=== PATIENT | male | born 1940 | race Caucasian/White ===

== ENCOUNTER 2020-11-13 15:24 | Inpatient (IN) | payer MEDICARE, BC ==
[~2020-11-13] VITALS: Ht 185.4 cm; Wt 61.3 kg
[2020-11-13] MEDS ORDERED: normal saline 1000ML IV soln IVB ONE (15:35)
--- NOTE | 2020-11-13 15:41 | NUR ---
PT TO CT VIA DICK WITH ASSISTANT DIRECTOR OF NURSING
[2020-11-13 16:26] LABS: BASOPHILS % (AUTO) 0.5 % (0-1); EOSINOPHILS # (AUTO) 0.4 X10'3 (0-0.9); EOSINOPHILS % (AUTO) 5.5 % (0-6); HEMATOCRIT 31.8 % (42.0-52.0); HEMOGLOBIN 10.8 g/dl (14.0-17.9); LYMPHOCYTES # (AUTO) 0.6 X10'3 (1.1-4.8); LYMPHOCYTES % (AUTO) 7.8 % (21-51); MEAN CORPUSCULAR HGB CONC 33.9 g/dL (33.0-36.5); MEAN CORPUSCULAR VOLUME 91.4 FL (78-98); MEAN PLATELET VOLUME 7.9 FL (7.4-10.4); MONOCYTES # (AUTO) 1.2 X10'3 (0-0.9); MONOCYTES % (AUTO) 15.3 % (2-12); NEUTROPHILS # (AUTO) 5.6 X10'3 (1.8-7.7); NEUTROPHILS % (AUTO) 70.9 % (42-75); PLATELET COUNT 344 X10'3 (140-440); RED BLOOD COUNT 3.48 X10'6 (4.70-6.10); RED CELL DISTRIBUTION WIDTH 13.6 % (11.5-14.5); WHITE BLOOD COUNT 7.9 X10'3 (4.5-11.0)
[2020-11-13 16:30] LABS: PARTIAL THROMBOPLASTIN TIME 25 SECONDS (22-32)
[2020-11-13 16:44] LABS: ALANINE AMINOTRANSFERASE 19 U/L (12-78); ALBUMIN 2.8 G/DL (3.4-5.0); ALBUMIN/GLOBULIN RATIO 0.6 (1.1-1.5); ALKALINE PHOSPHATASE 94 IU/L (46-116); ANION GAP 12 (8-16); ASPARTATE AMINO TRANSFERASE 23 U/L (10-37); BILIRUBIN,TOTAL 0.6 MG/DL (0.1-1.0); BLOOD UREA NITROGEN 37 MG/DL (7-18); BUN/CREATININE RATIO 22.4 (5.4-32.0); CALCIUM 11.2 MG/DL (8.5-10.1); CHLORIDE 99 MMOL/L (99-107); CREATININE 1.65 MG/DL (0.60-1.10); GLUCOSE 123 MG/DL (70-104); MAGNESIUM 1.5 MG/DL (1.5-2.4); SODIUM 135 MMOL/L (135-145); TOTAL CARBON DIOXIDE 24.5 MMOL/L (24-32); TOTAL PROTEIN 7.5 G/DL (6.4-8.2); eGFR 40 ML/MIN
[2020-11-13 16:49] LABS: POTASSIUM 2.9 MMOL/L (3.5-5.1)
[2020-11-13 16:54] LABS: CLARITY,URINE CLEAR (Clear); COLOR,URINE YELLOW (Yellow); GLUCOSE, URINE NEGATIVE (Neg); KETONES,URINE NEGATIVE (Neg); LEUKOCYTE ESTERASE ,URINE NEGATIVE (Neg); NITRITES, URINE NEGATIVE (Neg); OCCULT BLOOD,URINE MODERATE (Neg); PH,URINE 6.5 (4.8-8.0); PROTEIN,URINE NEGATIVE (Neg); UROBILINOGEN,URINE 0.2 E.U/dL (0.2-1.0)
[2020-11-13 16:59] LABS: UA COLLECTION TYPE NON-SPECIFIED
--- NOTE | 2020-11-13 16:59 | NUR ---
When asked if pt. has allergies to medications the pt. reports no allergies, but states "there is this stuff they add during surgery that makes me get up and tear up the hosptial". Pt. does not know what this medication is though.
[2020-11-13 17:01] LABS: MUCUS STRANDS FEW /LPF (Neg); SQUAMOUS EPITHELIAL CELL,UR FEW /LPF (FEW)
[2020-11-13 17:03] LABS: RBC,URINE 20-50 /HPF (0-2)
[2020-11-13 17:05] LABS: BACTERIA,URINE FEW /HPF (Neg)
[2020-11-13] MEDS ORDERED: CefTRIAXone/D5W-Rocephin 1gm 50 ML IV ONE (17:40)
[2020-11-13] MEDS ORDERED: azithromycin/NS 500mg/250ml 250 ML IV ONE (17:40)
[2020-11-13] MEDS ORDERED: normal saline 1000ml 1,000 ML IV ONE ×2 (17:45→18:05)
--- NOTE | 2020-11-13 18:09 | NUR ---
pt to ct via jennifer with manufacturing test engineer.
[2020-11-13] MEDS ORDERED: FLUD0.1T PO (18:21)
[2020-11-13] MEDS ORDERED: ASPI-10 PO (18:22)
[2020-11-13] MEDS ORDERED: [UNRECOGNIZED DRUG - CODE] PO (18:23)
--- NOTE | 2020-11-13 18:25 | NUR ---
PT'S REPORTS DO NOT GIVE ATIVAN. PT HAS VIOLENT REACTION.
[2020-11-13] MEDS: potassium Cl 10 mEq/100mL bag IV SCH ×2 (18:34→19:55)
[2020-11-13] MEDS ORDERED: magnesium hydroxide 30ml (MOM) UD suspension PO PRN (19:20)
[2020-11-13] MEDS: normal saline 1000ml 1,000 ML IV SCH (19:20)
[2020-11-13] MEDS ORDERED: acetaminophen 650mg rectal suppository RC PRN (19:20)
[2020-11-13] MEDS ORDERED: magnesium Cl slow-release 64mg tablet PO PRN (19:20)
[2020-11-13] MEDS ORDERED: ondansetron/PF 4mg/2ml inj IV PRN (19:20)
[2020-11-13] MEDS ORDERED: magnesium 4gm in 100ml NS 100 ML IV PRN (19:20)
[2020-11-13] MEDS ORDERED: potassium Cl 40MEQ/1/2NS 520ml 520 ML IV PRN ×2 (19:20)
[2020-11-13] MEDS ORDERED: magnesium 2GM in 50ml NS 50 ML IV PRN (19:20)
[2020-11-13] MEDS ORDERED: acetaminophen 325mg tablet PO PRN ×2 (19:20)
[2020-11-13] MEDS ORDERED: mag hydrox/Alum hydrox/simeth 30ml oral suspension PO PRN (19:20)
[2020-11-13] MEDS ORDERED: morphine 4 MG/ML inj SYRINge IV ONE (19:30)
[2020-11-13] MEDS ORDERED: HYDROcodone/acetaminophen 5mg/325mg tablet PO ONE (19:30)
[2020-11-13] MEDS ORDERED: potassium Cl 10 mEq/100mL bag IV SCH (19:50)
[2020-11-13] MEDS: heparin, porcine 5000 units/ml vial SQ SCH (20:00)
[2020-11-13] MEDS: K and/or MAG REPLACEMENT MC SCH (20:00)
[2020-11-13] MEDS: Melatonin 3mg tablet PO SCH (21:00)
[2020-11-13 23:00] VITALS: BP 148/87
[2020-11-13 23:16] LABS: PLATELET ESTIMATE NORMAL; TOTAL CELLS COUNTED 100
[2020-11-13 23:22] LABS: LARGE PLATELETS FEW
[2020-11-13] MEDS: HYDROcodone/acetaminophen 10/325mg tab PO PRN (23:33)
[2020-11-14 03:00] VITALS: BP 141/84
[2020-11-14 04:39] LABS: BASOPHILS # (AUTO) 0.1 X10'3 (0-0.2); BASOPHILS % (AUTO) 0.8 % (0-1); EOSINOPHILS # (AUTO) 0.1 X10'3 (0-0.9); EOSINOPHILS % (AUTO) 1.3 % (0-6); HEMOGLOBIN 9.9 g/dl (14.0-17.9); LYMPHOCYTES # (AUTO) 0.5 X10'3 (1.1-4.8); LYMPHOCYTES % (AUTO) 7.6 % (21-51); MEAN CORPUSCULAR HEMOGLOBIN 30.3 PG (27.0-31.0); MONOCYTES # (AUTO) 0.9 X10'3 (0-0.9); MONOCYTES % (AUTO) 12.5 % (2-12); NEUTROPHILS # (AUTO) 5.4 X10'3 (1.8-7.7); NEUTROPHILS % (AUTO) 77.8 % (42-75); PLATELET COUNT 312 X10'3 (140-440); RED BLOOD COUNT 3.26 X10'6 (4.70-6.10); RED CELL DISTRIBUTION WIDTH 13.7 % (11.5-14.5)
[2020-11-14 04:45] LABS: ALBUMIN 2.6 G/DL (3.4-5.0); ANION GAP 9 (8-16); BLOOD UREA NITROGEN 31 MG/DL (7-18); BUN/CREATININE RATIO 22.8 (5.4-32.0); CALCIUM 10.9 MG/DL (8.5-10.1); CHLORIDE 102 MMOL/L (99-107); CREATININE 1.36 MG/DL (0.60-1.10); GLUCOSE 122 MG/DL (70-104); MAGNESIUM 1.5 MG/DL (1.5-2.4); SODIUM 135 MMOL/L (135-145); TOTAL CARBON DIOXIDE 24.4 MMOL/L (24-32); eGFR 50 ML/MIN
[2020-11-14 04:49] LABS: POTASSIUM 2.9 MMOL/L (3.5-5.1)
[2020-11-14] MEDS: normal saline 1000ml 1,000 ML IV SCH (05:01)
[2020-11-14] MEDS: potassium Cl 20 mEq SR tablet PO PRN ×3 (05:01→20:03)
[2020-11-14 06:00] VITALS: BP 149/91
--- NOTE | 2020-11-14 06:17 | NUR ---
Patient in room PCU 3028. I have received report from JEAN-CLAUDE HAM and had the opportunity to ask questions and assume patient care.
--- NOTE | 2020-11-14 07:00 | NUR ---
received pt with sao2 mid 70's on R/A placed on 4l/n/c and cont pulse ox,with sao2 mid 80s ,Dr. Rodas notified,o2 up to 6l n/c wiith sao2 87-90% orders taken for ABG,results paged to
[2020-11-14] MEDS: K and/or MAG REPLACEMENT MC SCH ×2 (08:00→20:05)
[2020-11-14 08:36] LABS: ABG BASE EXCESS -2.4 mmol/L (-2.0-2.0); ABG HCO3 20.2 mmol/L (22.0-26.0); ABG OXYGEN SATURATION 77.8 % (94-97); ABG PO2 (T) 42.5 mmHg (75.0-100.0); ALLEN'S TEST POSITIVE; FCOHb 0.6 % (0.0-3.9); FMetHb 0.3 % (0.0-1.5); FO2Hb 77.1 % (94-97); TOTAL HEMOGLOBIN 10.4 G/dl (14.0-18.0)
--- NOTE | 2020-11-14 09:00 | NUR ---
pt confused ,pulled out iv,removing o2 , attempting oob,dr. arechiga at bedside,pt placed on 15/l high flow o2 with sao2=90-92% orders taken for sitter
[2020-11-14 11:00] VITALS: BP 186/103
[2020-11-14] MEDS: heparin, porcine 5000 units/ml vial SQ SCH ×2 (12:21→20:03)
[2020-11-14] MEDS ORDERED: furosemide 40mg/4ml inj IV ONE (12:25)
[2020-11-14] MEDS: methylPREDNISolone sod succ 125mg/2ml vial IV SCH ×2 (14:09→20:03)
[2020-11-14] MEDS: CefTRIAXone/D5W-Rocephin 1gm 50 ML IV SCH (14:28)
[2020-11-14 15:00] VITALS: BP 182/98
[2020-11-14] MEDS: HYDROcodone/acetaminophen 10/325mg tab PO PRN ×2 (16:50→21:52)
[2020-11-14 18:00] VITALS: BP 169/97
[2020-11-14] MEDS ORDERED: LIDOcaine 2% 10ml TOPICAL JELLY (Urojet) TP ONE (18:05)
--- NOTE | 2020-11-14 18:18 | NUR ---
Problems reprioritized. Patient report given, questions answered & plan of care reviewed with rina.
--- NOTE | 2020-11-14 19:15 | NUR ---
Patient in room PCU 3023. I have received report from Grace BERMEO and had the opportunity to ask questions and assume patient care.
[2020-11-14] MEDS: albuterol 2.5 MG/3 ML nebule NEB SCH (21:34)
[2020-11-14] MEDS: Melatonin 3mg tablet PO SCH (21:52)
[2020-11-14 22:00] VITALS: BP 167/94
--- NOTE | 2020-11-14 22:42 | NUR ---
Unable to dart patient, very confused.
--- NOTE | 2020-11-14 23:08 | NUR ---
Patient refuses orthostatic vitals, still confused.
[2020-11-15] VITALS (7 sets, daily range): BP systolic 94–167; BP diastolic 57–100
[2020-11-15] MEDS: methylPREDNISolone sod succ 125mg/2ml vial IV SCH ×4 (02:52→20:39)
[2020-11-15] MEDS: albuterol 2.5 MG/3 ML nebule NEB SCH ×7 (03:52→23:23)
--- NOTE | 2020-11-15 06:49 | NUR ---
Problems reprioritized. Patient report given, questions answered & plan of care reviewed with Niki BERMEO.
[2020-11-15] MEDS: heparin, porcine 5000 units/ml vial SQ SCH ×2 (08:25→20:38)
[2020-11-15] MEDS: K and/or MAG REPLACEMENT MC SCH ×2 (08:26→20:00)
[2020-11-15] MEDS: furosemide 40mg/4ml inj IV SCH (08:26)
[2020-11-15] MEDS: potassium Cl 20 mEq SR tablet PO PRN ×3 (08:32→18:11)
[2020-11-15] MEDS: CefTRIAXone/D5W-Rocephin 1gm 50 ML IV SCH (08:54)
--- NOTE | 2020-11-15 14:06 | NUR ---
PAGER ID: [phone] MESSAGE: DAVID TAFOYA [id number] JUST AN FYI ON ASSESSMENT THERE IS A LARGE BULDGE BUMP TO THE RIGHT OF RAMIREZ APPLE AND TRACHEA. PLEASE RENEW RESTRAINTS. THANKS TREASURE 7870
[2020-11-15] MEDS ORDERED: iohexol 350MG/ML 100ml bottle IV ONE (15:28)
--- NOTE | 2020-11-15 17:36 | NUR ---
PAGER ID: [phone] MESSAGE: DAVID HECTORWAYLON [id number] PLEASE NOTE SLIGHTLY ELEVATED BPS TODAY. CURRENT 157/93, REASSESSED. TREASURE 0510
--- NOTE | 2020-11-15 17:46 | NUR ---
PAGER ID: [phone] MESSAGE: DAVID TAFOYA IS BECOMING MORE AGITATED AND CONFUSED. ROOM 3023b. PLEASE RENEW RESTRAINT ORDER. PULLING 02 OFF AND DESATING AND PULLING AT F/C. TREASURE 4003
[2020-11-15] MEDS ORDERED: haloperidol lactate 5mg/ml inj IM ONE (17:50)
--- NOTE | 2020-11-15 17:52 | NUR ---
md CALLED. haldol ORDER GIVEN AND RESTRAINT ORDER RENEWED PT. IS BECOMING MORE AGITATED AND IS PULLING AT F/C AND PULLING 02 OFF.
--- NOTE | 2020-11-15 17:53 | NUR ---
AWARE OF BPS TODAY BUT NO NEW ORDERS AT THIS TIME. WILL CONT. TO MONITOR ON MY SHIFT.
--- NOTE | 2020-11-15 18:54 | NUR ---
Gave report to Sunitha BERMEO.
--- NOTE | 2020-11-15 18:54 | NUR ---
Patient in room PCU 3023. I have received report from Niki BERMEO and had the opportunity to ask questions and assume patient care.
--- NOTE | 2020-11-15 20:00 | NUR ---
patient refuses orthostatic vitals, patient is slightly confused as well
[2020-11-15] MEDS: lactobacillus rhamnosus 10,000 MMU CELLS/CAPSULE PO SCH (20:37)
[2020-11-15] MEDS: Melatonin 3mg tablet PO SCH (20:38)
--- NOTE | 2020-11-16 01:20 | NUR ---
patient 02 saturations were in the low 80s with 15 L on high flow nasal cannula. RN put on a nonrebreather at 15 L. patient o2 is sating in the 94-96s. Rn will continue to monitor
[2020-11-16] MEDS: methylPREDNISolone sod succ 125mg/2ml vial IV SCH ×4 (01:57→20:55)
[2020-11-16 02:00] VITALS: BP 159/94
[2020-11-16] MEDS: albuterol 2.5 MG/3 ML nebule NEB SCH ×5 (03:24→21:20)
--- NOTE | 2020-11-16 03:24 | NUR ---
RT did a breathing treatment with the patient and the patient is now on 15L high flow nasal cannula and 15L on the nonrebreather mask sating at 95%. RN will continue to monitor
--- NOTE | 2020-11-16 04:13 | NUR ---
patient is more noncompliant. RN will continue to monitor and reorient patient
[2020-11-16 06:00] VITALS: BP 172/97
--- NOTE | 2020-11-16 06:09 | NUR ---
Problems reprioritized. Patient report given, questions answered & plan of care reviewed with Frieda Nguyen.
[2020-11-16] MEDS: K and/or MAG REPLACEMENT MC SCH ×2 (08:00→20:00)
[2020-11-16] MEDS: lactobacillus rhamnosus 10,000 MMU CELLS/CAPSULE PO SCH ×2 (08:39→20:55)
[2020-11-16] MEDS: furosemide 40mg/4ml inj IV SCH (08:39)
[2020-11-16] MEDS: CefTRIAXone/D5W-Rocephin 1gm 50 ML IV SCH (08:39)
[2020-11-16] MEDS: heparin, porcine 5000 units/ml vial SQ SCH ×2 (08:40→20:56)
[2020-11-16 11:00] VITALS: BP 171/91
[2020-11-16 11:37] LABS: BASOPHILS # (AUTO) 0.1 X10'3 (0-0.2); BASOPHILS % (AUTO) 0.5 % (0-1); EOSINOPHILS % (AUTO) 0 % (0-6); HEMATOCRIT 31.2 % (42.0-52.0); HEMOGLOBIN 10.4 g/dl (14.0-17.9); LYMPHOCYTES # (AUTO) 0.5 X10'3 (1.1-4.8); LYMPHOCYTES % (AUTO) 3.2 % (21-51); MEAN CORPUSCULAR HEMOGLOBIN 30.4 PG (27.0-31.0); MEAN CORPUSCULAR HGB CONC 33.3 g/dL (33.0-36.5); MEAN CORPUSCULAR VOLUME 91.3 FL (78-98); MEAN PLATELET VOLUME 8.4 FL (7.4-10.4); MONOCYTES # (AUTO) 0.9 X10'3 (0-0.9); MONOCYTES % (AUTO) 6.3 % (2-12); NEUTROPHILS # (AUTO) 13.5 X10'3 (1.8-7.7); PLATELET COUNT 396 X10'3 (140-440); RED BLOOD COUNT 3.42 X10'6 (4.70-6.10)
[2020-11-16 11:53] LABS: ALANINE AMINOTRANSFERASE 27 U/L (12-78); ALBUMIN 2.8 G/DL (3.4-5.0); ALBUMIN/GLOBULIN RATIO 0.6 (1.1-1.5); ALKALINE PHOSPHATASE 87 IU/L (46-116); ANION GAP 12 (8-16); ASPARTATE AMINO TRANSFERASE 35 U/L (10-37); BILIRUBIN,TOTAL 0.5 MG/DL (0.1-1.0); BLOOD UREA NITROGEN 46 MG/DL (7-18); BUN/CREATININE RATIO 29.1 (5.4-32.0); CALCIUM 10.2 MG/DL (8.5-10.1); CHLORIDE 105 MMOL/L (99-107); CREATININE 1.58 MG/DL (0.60-1.10); GLUCOSE 133 MG/DL (70-104); MAGNESIUM 1.6 MG/DL (1.5-2.4); POTASSIUM 3.6 MMOL/L (3.5-5.1); SODIUM 141 MMOL/L (135-145); TOTAL CARBON DIOXIDE 23.9 MMOL/L (24-32); TOTAL PROTEIN 7.4 G/DL (6.4-8.2); eGFR 42 ML/MIN
--- NOTE | 2020-11-16 12:18 | NUR ---
PATIENT'S SPO2 99% ON 15L HIGH FLOW SALTER AND 12L NON REBREATHER. NON REBREATHER WAS TAKEN OFF AND PATIENT IS CURRENTLY ON 15L HIGH FLOW JUANITO SPO2 93%. NO SOB OR DISTRESS NOTED. RT WILL RETURN FOR 1500 SVN TX. Addendum: 11/16/20 at 1220 by Teresa Rodgers RT Amended: Links added.
[2020-11-16] MEDS: aspirin 81mg tablet.DR PO SCH (14:38)
[2020-11-16 15:00] VITALS: BP 135/86
[2020-11-16] MEDS ORDERED: haloperidol lactate 5mg/ml inj IM ONE (15:35)
--- NOTE | 2020-11-16 18:53 | NUR ---
Problems reprioritized. Patient report given, questions answered & plan of care reviewed with JEAN-CLAUDE HAM.
[2020-11-16 19:00] VITALS: BP 146/91
[2020-11-16] MEDS: Melatonin 3mg tablet PO SCH ×2 (20:56)
[2020-11-16] MEDS: azithromycin/NS 500mg/250ml 250 ML IV SCH (21:55)
[2020-11-16] MEDS ORDERED: ipratropium/albuterol 3ml nebule NEB PRN (21:55)
[2020-11-16] MEDS ORDERED: vancomycin/NS 1 GM ADD-VANTAGE 250 ML IV ONE (22:05)
[2020-11-16 23:00] VITALS: BP 136/71
[2020-11-16] MEDS: ipratropium/albuterol 3ml nebule NEB SCH (23:24)
[2020-11-17] MEDS: Melatonin 3mg tablet PO SCH ×2 (01:53→21:02)
[2020-11-17] MEDS: methylPREDNISolone sod succ 125mg/2ml vial IV SCH ×4 (02:21→20:00)
[2020-11-17 03:00] VITALS: BP 143/93
[2020-11-17] MEDS: ipratropium/albuterol 3ml nebule NEB SCH ×5 (03:05→20:22)
--- NOTE | 2020-11-17 06:28 | NUR ---
Patient in room PCU 3023. I have received report from JEAN-CLAUDE Cox and had the opportunity to ask questions and assume patient care.
[2020-11-17 07:00] VITALS: BP 171/101
[2020-11-17 07:14] LABS: ALANINE AMINOTRANSFERASE 41 U/L (12-78); ALBUMIN 2.9 G/DL (3.4-5.0); ALBUMIN/GLOBULIN RATIO 0.6 (1.1-1.5); ALKALINE PHOSPHATASE 83 IU/L (46-116); ANION GAP 11 (8-16); ASPARTATE AMINO TRANSFERASE 56 U/L (10-37); BILIRUBIN,TOTAL 0.7 MG/DL (0.1-1.0); BLOOD UREA NITROGEN 53 MG/DL (7-18); BUN/CREATININE RATIO 31.2 (5.4-32.0); CALCIUM 9.9 MG/DL (8.5-10.1); CHLORIDE 108 MMOL/L (99-107); GLUCOSE 135 MG/DL (70-104); MAGNESIUM 1.9 MG/DL (1.5-2.4); PHOSPHORUS 4.7 MG/DL (2.3-4.5); POTASSIUM 3.7 MMOL/L (3.5-5.1); SODIUM 146 MMOL/L (135-145); TOTAL CARBON DIOXIDE 26.9 MMOL/L (24-32); TOTAL PROTEIN 7.4 G/DL (6.4-8.2); eGFR 39 ML/MIN
[2020-11-17 07:17] LABS: BASOPHILS % (AUTO) 0.1 % (0-1); EOSINOPHILS % (AUTO) 0 % (0-6); HEMATOCRIT 30.5 % (42.0-52.0); HEMOGLOBIN 10.2 g/dl (14.0-17.9); LYMPHOCYTES # (AUTO) 0.5 X10'3 (1.1-4.8); LYMPHOCYTES % (AUTO) 5.2 % (21-51); MEAN CORPUSCULAR HEMOGLOBIN 30.8 PG (27.0-31.0); MEAN CORPUSCULAR HGB CONC 33.7 g/dL (33.0-36.5); MEAN CORPUSCULAR VOLUME 91.5 FL (78-98); MEAN PLATELET VOLUME 8.3 FL (7.4-10.4); MONOCYTES # (AUTO) 0.6 X10'3 (0-0.9); MONOCYTES % (AUTO) 6.5 % (2-12); NEUTROPHILS # (AUTO) 8.5 X10'3 (1.8-7.7); NEUTROPHILS % (AUTO) 88.2 % (42-75); PLATELET COUNT 367 X10'3 (140-440); RED BLOOD COUNT 3.33 X10'6 (4.70-6.10); RED CELL DISTRIBUTION WIDTH 14.2 % (11.5-14.5); WHITE BLOOD COUNT 9.7 X10'3 (4.5-11.0)
[2020-11-17] MEDS: lactobacillus rhamnosus 10,000 MMU CELLS/CAPSULE PO SCH ×2 (07:46→20:00)
[2020-11-17] MEDS: ascorbic acid 500mg tablet PO SCH (07:46)
[2020-11-17] MEDS: fludrocortisone acetate 0.1mg tablet PO SCH (07:47)
[2020-11-17] MEDS: aspirin 81mg tablet.DR PO SCH (07:47)
[2020-11-17] MEDS: piperacillin/tazo 3.375gm/50ml 50 ML IV SCH ×3 (07:48→16:22)
[2020-11-17] MEDS: furosemide 40mg/4ml inj IV SCH (07:48)
[2020-11-17] MEDS: heparin, porcine 5000 units/ml vial SQ SCH ×2 (07:48→20:00)
[2020-11-17] MEDS: K and/or MAG REPLACEMENT MC SCH ×2 (08:00→20:00)
[2020-11-17 11:00] VITALS: BP 151/92
[2020-11-17 15:00] VITALS: BP 140/98
[2020-11-17] MEDS: normal saline 1000ml 1,000 ML IV SCH ×2 (15:09→22:40)
[2020-11-17] MEDS: lactose-reduced food (Ensure Enlive) - 237ml bottle PO SCH (18:00)
--- NOTE | 2020-11-17 18:44 | NUR ---
Problems reprioritized. Patient report given, questions answered & plan of care reviewed with JEAN-CLAUDE Cox.
[2020-11-17 19:00] VITALS: BP 168/110
[2020-11-17] MEDS: azithromycin/NS 500mg/250ml 250 ML IV SCH (21:01)
[2020-11-17] MEDS ORDERED: VANCOMYCIN LEVEL IV ONE (21:30)
[2020-11-17] MEDS: VANCOMYCIN 750MG IV in NS 250 ML IV SCH (22:39)
[2020-11-17 23:00] VITALS: BP 163/105
[2020-11-18] MEDS: ipratropium/albuterol 3ml nebule NEB SCH ×7 (00:18→23:37)
[2020-11-18] MEDS: piperacillin/tazo 3.375gm/50ml 50 ML IV SCH ×3 (00:20→15:17)
[2020-11-18] MEDS: methylPREDNISolone sod succ 125mg/2ml vial IV SCH ×5 (02:14→20:58)
[2020-11-18 03:00] VITALS: BP 166/105
--- NOTE | 2020-11-18 06:14 | NUR ---
Patient in room PCU 3023. I have received report from JEAN-CLAUDE Cox and had the opportunity to ask questions and assume patient care.
[2020-11-18 06:16] LABS: BASOPHILS % (AUTO) 0 % (0-1); EOSINOPHILS % (AUTO) 0 % (0-6); HEMATOCRIT 29.4 % (42.0-52.0); HEMOGLOBIN 9.9 g/dl (14.0-17.9); LYMPHOCYTES # (AUTO) 0.5 X10'3 (1.1-4.8); LYMPHOCYTES % (AUTO) 6.7 % (21-51); MEAN CORPUSCULAR HGB CONC 33.7 g/dL (33.0-36.5); MEAN CORPUSCULAR VOLUME 91.8 FL (78-98); MEAN PLATELET VOLUME 7.9 FL (7.4-10.4); MONOCYTES # (AUTO) 0.6 X10'3 (0-0.9); MONOCYTES % (AUTO) 7.8 % (2-12); NEUTROPHILS # (AUTO) 6.1 X10'3 (1.8-7.7); NEUTROPHILS % (AUTO) 85.5 % (42-75); PLATELET COUNT 318 X10'3 (140-440); RED CELL DISTRIBUTION WIDTH 14.2 % (11.5-14.5); WHITE BLOOD COUNT 7.2 X10'3 (4.5-11.0)
[2020-11-18 06:33] LABS: ALANINE AMINOTRANSFERASE 64 U/L (12-78); ALBUMIN 2.6 G/DL (3.4-5.0); ALBUMIN/GLOBULIN RATIO 0.6 (1.1-1.5); ALKALINE PHOSPHATASE 73 IU/L (46-116); ANION GAP 10 (8-16); ASPARTATE AMINO TRANSFERASE 62 U/L (10-37); BLOOD UREA NITROGEN 54 MG/DL (7-18); BUN/CREATININE RATIO 32.5 (5.4-32.0); CALCIUM 8.8 MG/DL (8.5-10.1); CHLORIDE 113 MMOL/L (99-107); CREATININE 1.66 MG/DL (0.60-1.10); GLUCOSE 141 MG/DL (70-104); PHOSPHORUS 3.8 MG/DL (2.3-4.5); SODIUM 150 MMOL/L (135-145); TOTAL CARBON DIOXIDE 26.7 MMOL/L (24-32); TOTAL PROTEIN 6.7 G/DL (6.4-8.2); eGFR 40 ML/MIN
[2020-11-18 07:00] VITALS: BP 160/102
[2020-11-18 07:05] LABS: POTASSIUM 2.6 MMOL/L (3.5-5.1)
--- NOTE | 2020-11-18 07:12 | NUR ---
PAGER ID: [phone] MESSAGE: CARMEN WEINBERG 3023B - CRITICAL K+ 2.6, NO REPLACEMENT ORDERS, MAY I REPLACE? WILTON Porfirio [phone]
[2020-11-18] MEDS: heparin, porcine 5000 units/ml vial SQ SCH ×2 (07:58→20:38)
[2020-11-18] MEDS: ascorbic acid 500mg tablet PO SCH (07:58)
[2020-11-18] MEDS: aspirin 81mg tablet.DR PO SCH (07:58)
[2020-11-18] MEDS: K and/or MAG REPLACEMENT MC SCH ×3 (07:58→20:39)
[2020-11-18] MEDS: fludrocortisone acetate 0.1mg tablet PO SCH (07:58)
[2020-11-18] MEDS: lactobacillus rhamnosus 10,000 MMU CELLS/CAPSULE PO SCH ×2 (07:58→20:38)
[2020-11-18] MEDS: lactose-reduced food (Ensure Enlive) - 237ml bottle PO SCH ×3 (07:58→18:00)
[2020-11-18] MEDS ORDERED: potassium Cl 40MEQ/1/2NS 520ml 520 ML IV PRN (09:50)
[2020-11-18] MEDS ORDERED: magnesium Cl slow-release 64mg tablet PO PRN (09:50)
[2020-11-18] MEDS ORDERED: magnesium 4gm in 100ml NS 100 ML IV PRN (09:50)
[2020-11-18] MEDS: potassium Cl 20 mEq SR tablet PO PRN ×3 (10:17→20:37)
[2020-11-18] MEDS: dextrose 5%-1/4 normal saline 1,000 ML IV SCH ×2 (10:33→20:58)
[2020-11-18 11:00] VITALS: BP 167/97
[2020-11-18 15:00] VITALS: BP 141/89
--- NOTE | 2020-11-18 15:50 | NUR ---
Initial: Pt admit DX acute respiratory failure, severe COPD, acute encephalopathy multifactorial from UTI and hypoxia, possible PNA, and ALOC confused w/ restraints and sitter per MD note. Initially PO ~75% avg regular diet though declined to 0-25% past 2 days w/ ensure enlive TIDWM started today. Pt PO 50-75% first 2 ONS much better than solid meals currently. LBM 11/17 w/ daily small BM's per EMR. Na 150 receiving dex/NS. Will continue to monitor for further PO hx,ONS acceptance, and additional protein needs this admit. Rec: 1. continue regular diet; feeder w/ meals given sitter/restraints 2. ensure enlive TIDWM 3. routine bowel care 4. scaled wt this admit Addendum: 11/18/20 at [address] Amended: Links added.
[2020-11-18 18:00] VITALS: BP 188/95
--- NOTE | 2020-11-18 18:05 | NUR ---
PAGER ID: [phone] MESSAGE: PT Kali Amato [id number] - BP Right arm 179/107, Left arm 188/95. Nothing on board for BP, Roblesix was D/C'd, can we get something to control BP? Pls advise, Candace Porfirio
[2020-11-18] MEDS ORDERED: hydrALAZINE 20mg/ml inj. IV PRN (18:45)
[2020-11-18] MEDS ORDERED: hydrALAZINE 20mg/ml inj. IV ONE (18:45)
--- NOTE | 2020-11-18 18:55 | NUR ---
Problems reprioritized. Patient report given, questions answered & plan of care reviewed with JEAN-CLAUDE Gooden.
[2020-11-18] MEDS: amLODIPine 5mg tablet PO SCH (19:02)
[2020-11-18] MEDS: Melatonin 3mg tablet PO SCH ×2 (20:37→21:00)
[2020-11-18] MEDS: azithromycin/NS 500mg/250ml 250 ML IV SCH (22:20)
[2020-11-18] MEDS: VANCOMYCIN 750MG IV in NS 250 ML IV SCH (23:58)
[2020-11-19 02:00] VITALS: BP 149/90
[2020-11-19] MEDS: piperacillin/tazo 3.375gm/50ml 50 ML IV SCH ×3 (02:16→18:43)
[2020-11-19] MEDS: methylPREDNISolone sod succ 125mg/2ml vial IV SCH ×4 (02:17→21:34)
[2020-11-19] MEDS: lactose-reduced food (Ensure Enlive) - 237ml bottle PO SCH ×3 (03:01→18:00)
[2020-11-19] MEDS: ipratropium/albuterol 3ml nebule NEB SCH ×6 (03:18→23:29)
[2020-11-19 06:30] LABS: BASOPHILS % (AUTO) 0.1 % (0-1); EOSINOPHILS % (AUTO) 0 % (0-6); HEMATOCRIT 32.1 % (42.0-52.0); HEMOGLOBIN 10.5 g/dl (14.0-17.9); LYMPHOCYTES # (AUTO) 0.6 X10'3 (1.1-4.8); LYMPHOCYTES % (AUTO) 6.4 % (21-51); MEAN CORPUSCULAR HEMOGLOBIN 30.4 PG (27.0-31.0); MEAN CORPUSCULAR HGB CONC 32.7 g/dL (33.0-36.5); MEAN PLATELET VOLUME 8.3 FL (7.4-10.4); MONOCYTES # (AUTO) 0.8 X10'3 (0-0.9); MONOCYTES % (AUTO) 8.5 % (2-12); NEUTROPHILS # (AUTO) 7.9 X10'3 (1.8-7.7); PLATELET COUNT 302 X10'3 (140-440); RED BLOOD COUNT 3.46 X10'6 (4.70-6.10); RED CELL DISTRIBUTION WIDTH 14.6 % (11.5-14.5); WHITE BLOOD COUNT 9.3 X10'3 (4.5-11.0)
--- NOTE | 2020-11-19 06:42 | NUR ---
Patient in room PCU 3023. I have received report from JEAN-CLAUDE Gooden and had the opportunity to ask questions and assume patient care.
--- NOTE | 2020-11-19 06:49 | NUR ---
Problems reprioritized. Patient report given, questions answered & plan of care reviewed with JEAN-CLAUDE Maria.
[2020-11-19 07:00] VITALS: BP 157/93
[2020-11-19 07:03] LABS: ALANINE AMINOTRANSFERASE 80 U/L (12-78); ALBUMIN 2.5 G/DL (3.4-5.0); ALBUMIN/GLOBULIN RATIO 0.6 (1.1-1.5); ALKALINE PHOSPHATASE 70 IU/L (46-116); ANION GAP 12 (8-16); ASPARTATE AMINO TRANSFERASE 53 U/L (10-37); BILIRUBIN,TOTAL 0.8 MG/DL (0.1-1.0); BLOOD UREA NITROGEN 45 MG/DL (7-18); BUN/CREATININE RATIO 32.6 (5.4-32.0); CALCIUM 9.2 MG/DL (8.5-10.1); CHLORIDE 113 MMOL/L (99-107); CREATININE 1.38 MG/DL (0.60-1.10); GLUCOSE 165 MG/DL (70-104); MAGNESIUM 2.1 MG/DL (1.5-2.4); PHOSPHORUS 2.3 MG/DL (2.3-4.5); POTASSIUM 3.2 MMOL/L (3.5-5.1); SODIUM 149 MMOL/L (135-145); TOTAL CARBON DIOXIDE 23.9 MMOL/L (24-32); TOTAL PROTEIN 6.5 G/DL (6.4-8.2); eGFR 49 ML/MIN
[2020-11-19] MEDS: K and/or MAG REPLACEMENT MC SCH ×2 (08:00→20:00)
[2020-11-19] MEDS: fludrocortisone acetate 0.1mg tablet PO SCH (08:22)
[2020-11-19] MEDS: ascorbic acid 500mg tablet PO SCH (08:22)
[2020-11-19] MEDS: amLODIPine 5mg tablet PO SCH (08:22)
[2020-11-19] MEDS: aspirin 81mg tablet.DR PO SCH (08:22)
[2020-11-19] MEDS: lactobacillus rhamnosus 10,000 MMU CELLS/CAPSULE PO SCH ×2 (08:22→21:34)
[2020-11-19] MEDS: dextrose 5%-1/4 normal saline 1,000 ML IV SCH ×2 (08:22→18:44)
[2020-11-19] MEDS: heparin, porcine 5000 units/ml vial SQ SCH ×2 (08:23→21:37)
--- NOTE | 2020-11-19 09:00 | NUR ---
Trying patient without restraints. Pt much calmer today, A&O x3. Sitter in room, will continue to assess readiness for restraint discontinue.
[2020-11-19 11:00] VITALS: BP 141/83
[2020-11-19 15:00] VITALS: BP 156/93
--- NOTE | 2020-11-19 17:09 | NUR ---
PAGER ID: [phone] MESSAGE: Pt Kali Amato [id number]. Encephalopathy has resolved. Trialed off restraints all day and he did well, no pulling or confusion. Pt A&Ox4, I D/C'd restraint order. Also down to 5L NC .Candace Neumann
--- NOTE | 2020-11-19 18:30 | NUR ---
Patient in room PCU 3023. I have received report from JEAN-CLAUDE Maria and had the opportunity to ask questions and assume patient care.
--- NOTE | 2020-11-19 18:31 | NUR ---
Problems reprioritized. Patient report given, questions answered & plan of care reviewed with JEAN-CLAUDE Gooden.
[2020-11-19] MEDS: Melatonin 3mg tablet PO SCH ×2 (21:00→21:34)
[2020-11-19] MEDS: azithromycin/NS 500mg/250ml 250 ML IV SCH (21:35)
--- NOTE | 2020-11-20 00:30 | NUR ---
Patient being combative. Irritated. Called Dr. Tse. He returned call and ordered Geodon PRN. [place] not on floor, called pharmacy. By the time pharmacy had medication available, patient had calmed down. Medication is available PRN.
[2020-11-20] MEDS: ipratropium/albuterol 3ml nebule NEB SCH ×7 (03:00→23:51)
[2020-11-20] MEDS: VANCOMYCIN 750MG IV in NS 250 ML IV SCH ×2 (03:47→22:42)
[2020-11-20 06:00] VITALS: BP 152/104
--- NOTE | 2020-11-20 06:47 | NUR ---
Problems reprioritized. Patient report given, questions answered & plan of care reviewed with JEAN-CLAUDE Lees. Safety measures in place, bed in low and locked position. Call light and personal items within reach. Will continue to monitor for remainder of shift.
[2020-11-20 07:04] LABS: BASOPHILS % (AUTO) 0.2 % (0-1); EOSINOPHILS % (AUTO) 0 % (0-6); HEMOGLOBIN 10.5 g/dl (14.0-17.9); LYMPHOCYTES # (AUTO) 0.6 X10'3 (1.1-4.8); MEAN CORPUSCULAR HEMOGLOBIN 30.2 PG (27.0-31.0); MEAN CORPUSCULAR HGB CONC 32.9 g/dL (33.0-36.5); MEAN CORPUSCULAR VOLUME 91.9 FL (78-98); MONOCYTES % (AUTO) 8.1 % (2-12); NEUTROPHILS # (AUTO) 10.7 X10'3 (1.8-7.7); NEUTROPHILS % (AUTO) 86.7 % (42-75); PLATELET COUNT 307 X10'3 (140-440); RED BLOOD COUNT 3.48 X10'6 (4.70-6.10); RED CELL DISTRIBUTION WIDTH 14.1 % (11.5-14.5); WHITE BLOOD COUNT 12.3 X10'3 (4.5-11.0)
--- NOTE | 2020-11-20 07:14 | NUR ---
Patient in room PCU 3023. I have received report from JEAN-CLAUDE Gooden and had the opportunity to ask questions and assume patient care.
[2020-11-20 07:19] LABS: ALANINE AMINOTRANSFERASE 84 U/L (12-78); ALBUMIN 2.6 G/DL (3.4-5.0); ALBUMIN/GLOBULIN RATIO 0.7 (1.1-1.5); ALKALINE PHOSPHATASE 79 IU/L (46-116); ANION GAP 10 (8-16); ASPARTATE AMINO TRANSFERASE 48 U/L (10-37); BILIRUBIN,TOTAL 0.9 MG/DL (0.1-1.0); BLOOD UREA NITROGEN 39 MG/DL (7-18); BUN/CREATININE RATIO 31.5 (5.4-32.0); CALCIUM 8.7 MG/DL (8.5-10.1); CHLORIDE 108 MMOL/L (99-107); CREATININE 1.24 MG/DL (0.60-1.10); GLUCOSE 106 MG/DL (70-104); MAGNESIUM 1.7 MG/DL (1.5-2.4); PHOSPHORUS 2.5 MG/DL (2.3-4.5); POTASSIUM 3.3 MMOL/L (3.5-5.1); SODIUM 144 MMOL/L (135-145); TOTAL CARBON DIOXIDE 25.7 MMOL/L (24-32); TOTAL PROTEIN 6.6 G/DL (6.4-8.2); eGFR 56 ML/MIN
[2020-11-20] MEDS: K and/or MAG REPLACEMENT MC SCH ×2 (08:00→20:00)
[2020-11-20 08:27] LABS: TOTAL CELLS COUNTED 100
[2020-11-20 08:28] LABS: ANISOCYTOSIS FEW; HYPERSEGMENTED NEUTROPHILS FEW; PLATELET ESTIMATE NORMAL; POLYCHROMASIA FEW
[2020-11-20 08:29] LABS: POIKILOCYTOSIS FEW
[2020-11-20] MEDS: heparin, porcine 5000 units/ml vial SQ SCH ×2 (08:54→20:12)
[2020-11-20] MEDS: aspirin 81mg tablet.DR PO SCH (08:54)
[2020-11-20] MEDS: ascorbic acid 500mg tablet PO SCH (08:55)
[2020-11-20] MEDS: amLODIPine 5mg tablet PO SCH (08:55)
[2020-11-20] MEDS: potassium Cl 20 mEq SR tablet PO PRN ×3 (08:55→17:29)
[2020-11-20] MEDS: fludrocortisone acetate 0.1mg tablet PO SCH (08:55)
[2020-11-20] MEDS: piperacillin/tazo 3.375gm/50ml 50 ML IV SCH ×3 (08:56→17:28)
[2020-11-20] MEDS: methylPREDNISolone sod succ 125mg/2ml vial IV SCH ×2 (08:56→20:09)
[2020-11-20] MEDS: lactobacillus rhamnosus 10,000 MMU CELLS/CAPSULE PO SCH ×2 (08:56→20:07)
[2020-11-20] MEDS: lactose-reduced food (Ensure Enlive) - 237ml bottle PO SCH ×3 (08:56→18:00)
[2020-11-20 11:00] VITALS: BP 126/76
[2020-11-20] MEDS: dextrose 5%-1/4 normal saline 1,000 ML IV SCH (11:59)
[2020-11-20 15:00] VITALS: BP 138/91
--- NOTE | 2020-11-20 15:52 | NUR ---
PAGER ID: [phone] MESSAGE: iw [id number]. pt. Elaine Amato. pt. started trying to hit RT and the sitter when they stepped in to help. pt. was also tugging on his phan. can we order pt. restraints? thank you. Jimena [phone] Addendum: 11/20/20 at 1603 by Yoana Garcia RN RN not in room during this interaction, community engagement specialist was present and informed RN of what occurred. called and approved restraints.
[2020-11-20 18:00] VITALS: BP 131/79
--- NOTE | 2020-11-20 18:20 | NUR ---
Problems reprioritized. Patient report given, questions answered & plan of care reviewed with JEAN-CLAUDE Angel.
--- NOTE | 2020-11-20 18:46 | NUR ---
Patient in room PCU 3023. I have received report from Jimena BERMEO and had the opportunity to ask questions and assume patient care.
[2020-11-20] MEDS ORDERED: ondansetron 4mg rapidly disintigrating tab PO PRN (19:25)
[2020-11-20] MEDS: Melatonin 3mg tablet PO SCH ×2 (21:00→21:24)
[2020-11-20] MEDS: azithromycin/NS 500mg/250ml 250 ML IV SCH (21:26)
[2020-11-20] MEDS ORDERED: VANCOMYCIN LEVEL IV ONE (21:30)
[2020-11-20 22:00] VITALS: BP 154/95
[2020-11-21] MEDS: dextrose 5%-1/4 normal saline 1,000 ML IV SCH ×3 (00:38→20:38)
[2020-11-21] MEDS: piperacillin/tazo 3.375gm/50ml 50 ML IV SCH ×3 (00:40→15:47)
[2020-11-21 02:00] VITALS: BP 157/100
[2020-11-21] MEDS: ipratropium/albuterol 3ml nebule NEB SCH ×5 (03:57→20:42)
--- NOTE | 2020-11-21 04:25 | NUR ---
Unable to DART patient due to patient mentation. Patient very confused. Will pass on the information to dayshift and see if we can call a family member to get information.
--- NOTE | 2020-11-21 06:24 | NUR ---
Problems reprioritized. Patient report given, questions answered & plan of care reviewed with La Fonseca RN.
--- NOTE | 2020-11-21 06:50 | NUR ---
Patient in room PCU 3023. I have received report from Jeanne BERMEO and had the opportunity to ask questions and assume patient care.
[2020-11-21 07:00] VITALS: BP 178/106
[2020-11-21 07:03] LABS: BASOPHILS % (AUTO) 0.1 % (0-1); EOSINOPHILS % (AUTO) 0 % (0-6); HEMOGLOBIN 10.3 g/dl (14.0-17.9); LYMPHOCYTES # (AUTO) 0.6 X10'3 (1.1-4.8); LYMPHOCYTES % (AUTO) 5.8 % (21-51); MEAN CORPUSCULAR HEMOGLOBIN 30.1 PG (27.0-31.0); MEAN CORPUSCULAR HGB CONC 32.4 g/dL (33.0-36.5); MEAN PLATELET VOLUME 8.4 FL (7.4-10.4); MONOCYTES # (AUTO) 0.8 X10'3 (0-0.9); MONOCYTES % (AUTO) 8.3 % (2-12); NEUTROPHILS # (AUTO) 8.7 X10'3 (1.8-7.7); NEUTROPHILS % (AUTO) 85.8 % (42-75); PLATELET COUNT 281 X10'3 (140-440); RED BLOOD COUNT 3.43 X10'6 (4.70-6.10); RED CELL DISTRIBUTION WIDTH 14.4 % (11.5-14.5); WHITE BLOOD COUNT 10.1 X10'3 (4.5-11.0)
[2020-11-21 07:19] LABS: ALANINE AMINOTRANSFERASE 90 U/L (12-78); ALBUMIN 2.4 G/DL (3.4-5.0); ALBUMIN/GLOBULIN RATIO 0.6 (1.1-1.5); ALKALINE PHOSPHATASE 75 IU/L (46-116); ANION GAP 9 (8-16); ASPARTATE AMINO TRANSFERASE 46 U/L (10-37); BLOOD UREA NITROGEN 39 MG/DL (7-18); BUN/CREATININE RATIO 33.1 (5.4-32.0); CALCIUM 8.4 MG/DL (8.5-10.1); CHLORIDE 106 MMOL/L (99-107); CREATININE 1.18 MG/DL (0.60-1.10); GLUCOSE 117 MG/DL (70-104); MAGNESIUM 1.7 MG/DL (1.5-2.4); POTASSIUM 4.1 MMOL/L (3.5-5.1); SODIUM 139 MMOL/L (135-145); TOTAL CARBON DIOXIDE 23.9 MMOL/L (24-32); TOTAL PROTEIN 6.1 G/DL (6.4-8.2); eGFR 59 ML/MIN
[2020-11-21] MEDS: K and/or MAG REPLACEMENT MC SCH ×2 (08:00→20:00)
[2020-11-21] MEDS: lactobacillus rhamnosus 10,000 MMU CELLS/CAPSULE PO SCH ×2 (08:50→20:20)
[2020-11-21] MEDS: methylPREDNISolone sod succ 125mg/2ml vial IV SCH ×2 (08:50→20:21)
[2020-11-21] MEDS: heparin, porcine 5000 units/ml vial SQ SCH ×2 (08:51→20:21)
[2020-11-21] MEDS: aspirin 81mg tablet.DR PO SCH (08:52)
[2020-11-21] MEDS: lactose-reduced food (Ensure Enlive) - 237ml bottle PO SCH ×3 (08:52→20:00)
[2020-11-21] MEDS: ascorbic acid 500mg tablet PO SCH (08:53)
[2020-11-21] MEDS: fludrocortisone acetate 0.1mg tablet PO SCH (08:53)
[2020-11-21] MEDS: amLODIPine 5mg tablet PO SCH (08:53)
--- NOTE | 2020-11-21 09:28 | NUR ---
Patient very confused and wanting to get out of bed. Restraints are on and assessed. Patient was able to follow commands and could not recall them. Patient able to swallow pills and eat with left hand with assistance. Will continue to monitor.
[2020-11-21 11:00] VITALS: BP 172/100
--- NOTE | 2020-11-21 14:01 | NUR ---
Blood pressure was recorded to be high 172/100. Cam in and took three times 127/70. No Hydralazine given. We will continue to monitor. Addendum: 11/21/20 at 1403 by La Gomez RN Stuck medication is the waste. with La [place]
--- NOTE | 2020-11-21 14:16 | NUR ---
Reassessment: Pt PO continues to fluctuate ~25% avg meals w/ ~50% avg ensure enlive TIDWM. Pt placed in restraints at night r/t ALOC possible sundowning per MD note; likely impacting PM PO meals as well. Given ONS PO will trial smoothies BIDBL for additional kcals; dietary notified. LBM 11/19. Will continue to monitor. Rec: 1. continue regular diet; feeder w/ meals given sitter/restraints 2. ensure enlive TIDWM w/ smoothies BIDBL; encourage PO 3. routine bowel care 4. scaled wt this admit Addendum: 11/21/20 at [address] Amended: Links added.
[2020-11-21 15:00] VITALS: BP 126/77
[2020-11-21 18:00] VITALS: BP 138/86
--- NOTE | 2020-11-21 18:45 | NUR ---
Problems reprioritized. Patient report given, questions answered & plan of care reviewed with Lucy BERMEO.
[2020-11-21] MEDS: azithromycin/NS 500mg/250ml 250 ML IV SCH (20:22)
[2020-11-21] MEDS: Melatonin 3mg tablet PO SCH (21:00)
[2020-11-21 22:00] VITALS: BP_SYST 138; BP_SYST 175; BP_DIAS 88; BP_DIAS 96
[2020-11-21] MEDS: vancomycin/NS 1 GM ADD-VANTAGE 250 ML IV SCH (22:40)
[2020-11-22] MEDS: ipratropium/albuterol 3ml nebule NEB SCH ×7 (00:07→23:06)
[2020-11-22] MEDS: piperacillin/tazo 3.375gm/50ml 50 ML IV SCH ×2 (00:44→09:15)
[2020-11-22 02:00] VITALS: BP 147/88
--- NOTE | 2020-11-22 06:59 | NUR ---
Patient in room PCU 3023. I have received report from Sera BERMEO and had the opportunity to ask questions and assume patient care.
[2020-11-22 07:00] VITALS: BP 155/80
[2020-11-22] MEDS: lactose-reduced food (Ensure Enlive) - 237ml bottle PO SCH ×3 (08:00→18:00)
[2020-11-22] MEDS: K and/or MAG REPLACEMENT MC SCH ×2 (08:00→20:00)
[2020-11-22] MEDS: heparin, porcine 5000 units/ml vial SQ SCH ×2 (09:14→20:26)
[2020-11-22] MEDS: lactobacillus rhamnosus 10,000 MMU CELLS/CAPSULE PO SCH ×2 (09:14→20:26)
[2020-11-22] MEDS: amLODIPine 5mg tablet PO SCH (09:14)
[2020-11-22] MEDS: ascorbic acid 500mg tablet PO SCH (09:14)
[2020-11-22] MEDS: aspirin 81mg tablet.DR PO SCH (09:14)
[2020-11-22] MEDS: fludrocortisone acetate 0.1mg tablet PO SCH (09:15)
[2020-11-22] MEDS: methylPREDNISolone sod succ 125mg/2ml vial IV SCH ×2 (09:15→20:27)
[2020-11-22] MEDS: HYDROcodone/acetaminophen 10/325mg tab PO PRN (14:09)
[2020-11-22 15:00] VITALS: BP 124/82
[2020-11-22 18:00] VITALS: BP 105/76
--- NOTE | 2020-11-22 18:54 | NUR ---
Problems reprioritized. Patient report given, questions answered & plan of care reviewed with Sera BERMEO.
[2020-11-22] MEDS: Melatonin 3mg tablet PO SCH (20:26)
[2020-11-22] MEDS: HYDROcodone/acetaminophen 5mg/325mg tablet PO PRN ×2 (22:12→23:42)
[2020-11-22] MEDS: vancomycin/NS 1 GM ADD-VANTAGE 250 ML IV SCH (22:12)
[2020-11-22] MEDS: dextrose 5%-1/4 normal saline 1,000 ML IV SCH (23:18)
[2020-11-22] MEDS: ziprasidone IM 20mg inj **IM only IM PRN (23:39)
[2020-11-22] MEDS: diphenhydrAMINE 50 mg/ml inj IV ONE (23:50)
[2020-11-22] MEDS ORDERED: ziprasidone IM 20mg inj **IM only IM PRN (23:50)
[2020-11-23] MEDS: vancomycin/NS 1 GM ADD-VANTAGE 250 ML IV SCH (00:19)
[2020-11-23] MEDS: diphenhydrAMINE 50 mg/ml inj IV ONE (00:53)
[2020-11-23] MEDS: ipratropium/albuterol 3ml nebule NEB SCH ×6 (02:10→23:58)
[2020-11-23 03:00] VITALS: BP 97/60
[2020-11-23 03:13] LABS: ABG BASE EXCESS -3.5 mmol/L (-2.0-2.0); ABG HCO3 19.3 mmol/L (22.0-26.0); ABG OXYGEN SATURATION 99.3 % (94-97); ABG PCO2 (T) 27.2 mmHg (35.0-48.0); ABG PO2 (T) 293.7 mmHg (75.0-100.0); ALLEN'S TEST POSITIVE; FCOHb 0.3 % (0.0-3.9); FMetHb 0.2 % (0.0-1.5); FO2Hb 98.8 % (94-97); TOTAL HEMOGLOBIN 9.9 G/dl (14.0-18.0)
[2020-11-23 03:33] LABS: ALBUMIN 2.3 G/DL (3.4-5.0); ANION GAP 7 (8-16); BLOOD UREA NITROGEN 33 MG/DL (7-18); BUN/CREATININE RATIO 25.2 (5.4-32.0); CALCIUM 8.3 MG/DL (8.5-10.1); CHLORIDE 107 MMOL/L (99-107); CREATININE 1.31 MG/DL (0.60-1.10); GLUCOSE 126 MG/DL (70-104); POTASSIUM 4.5 MMOL/L (3.5-5.1); SODIUM 141 MMOL/L (135-145); TOTAL CARBON DIOXIDE 26.6 MMOL/L (24-32); eGFR 53 ML/MIN
--- NOTE | 2020-11-23 03:34 | NUR ---
RN called into patient room at approximately 02:45am due to large amount of rectal bleeding. Patient was found to be passing blood and large clots from his rectum. While turning patient for cleaning, he complained of shortness of breath. Oxygen level was noted to be 76% on 2L NC, oxygen levek increased with no effect. Patient placed on non-rebreather with no effect. Rappid response called due to respiratory distress. Was able to be weened of of non-rebreather and placed on 5L NC. Dr. Alvarez notified and orders placed
[2020-11-23 03:36] LABS: PARTIAL THROMBOPLASTIN TIME 28 SECONDS (22-32)
[2020-11-23 03:39] LABS: BASOPHILS % (AUTO) 0.1 % (0-1); EOSINOPHILS % (AUTO) 0 % (0-6); HEMATOCRIT 29.6 % (42.0-52.0); HEMOGLOBIN 9.6 g/dl (14.0-17.9); LYMPHOCYTES # (AUTO) 0.5 X10'3 (1.1-4.8); MEAN CORPUSCULAR HGB CONC 32.3 g/dL (33.0-36.5); MEAN CORPUSCULAR VOLUME 92.8 FL (78-98); MEAN PLATELET VOLUME 8.8 FL (7.4-10.4); MONOCYTES # (AUTO) 0.5 X10'3 (0-0.9); MONOCYTES % (AUTO) 4.3 % (2-12); NEUTROPHILS # (AUTO) 10.6 X10'3 (1.8-7.7); NEUTROPHILS % (AUTO) 91.6 % (42-75); PLATELET COUNT 252 X10'3 (140-440); RED BLOOD COUNT 3.19 X10'6 (4.70-6.10); RED CELL DISTRIBUTION WIDTH 14.6 % (11.5-14.5); WHITE BLOOD COUNT 11.6 X10'3 (4.5-11.0)
--- NOTE | 2020-11-23 06:41 | NUR ---
Patient in room PCU 3023. I have received report from Sera BERMEO and had the opportunity to ask questions and assume patient care.
[2020-11-23 07:00] VITALS: BP 90/57
--- NOTE | 2020-11-23 07:32 | NUR ---
Paged Dr. Powers PAGER ID: [phone] MESSAGE: Re: Kali Amato RM [id number]. Pt had large amounts of blood out rectum. No new orders, Please advise? Thank you La BERMEO [phone]
[2020-11-23] MEDS: fludrocortisone acetate 0.1mg tablet PO SCH (08:00)
[2020-11-23] MEDS: aspirin 81mg tablet.DR PO SCH (08:00)
[2020-11-23] MEDS: heparin, porcine 5000 units/ml vial SQ SCH ×2 (08:00→08:06)
[2020-11-23] MEDS: lactobacillus rhamnosus 10,000 MMU CELLS/CAPSULE PO SCH ×2 (08:00→20:32)
[2020-11-23] MEDS: ascorbic acid 500mg tablet PO SCH (08:00)
[2020-11-23] MEDS: amLODIPine 5mg tablet PO SCH (08:00)
[2020-11-23] MEDS: K and/or MAG REPLACEMENT MC SCH ×2 (08:00→20:00)
[2020-11-23] MEDS: lactose-reduced food (Ensure Enlive) - 237ml bottle PO SCH ×3 (08:00→17:49)
[2020-11-23] MEDS: methylPREDNISolone sod succ 125mg/2ml vial IV SCH (08:05)
[2020-11-23] MEDS: piperacillin/tazo 3.375gm/50ml 50 ML IV SCH ×3 (08:06→17:48)
--- NOTE | 2020-11-23 09:00 | NUR ---
Spoke with , Magdalena, she believes that certain medication will fix the pt and his health. Called and spoke with Ирина for more resources to better fit patient needs. All AM medications have been held due to patient unable to follow commands. Will continue to monitor.
[2020-11-23 11:00] VITALS: BP 127/81
--- NOTE | 2020-11-23 12:00 | NUR ---
Dr. Powers wants aspirin and Heparin held til further notice, Active bleeding in rectum. Will continue to monitor.
[2020-11-23 12:03] LABS: OCCULT BLOOD STOOL POSITIVE (Neg)
[2020-11-23 12:09] LABS: C DIFF ANTIGEN NEGATIVE (NEGATIVE); C DIFF SPECIMEN=DIARRHEA? ACCEPTABLE; C DIFFICILE TOXINS A&B NEGATIVE (Neg)
[2020-11-23 15:00] VITALS: BP 126/78
--- NOTE | 2020-11-23 16:18 | NUR ---
Nutrition consult re: pt not eating. Spoke with bedside RN, reports pt mentation has declined more today and is refusing all meals, not swallowing pills. Consider BSS. Discussion will be made with to place tube feeding. If tube feeding is placed recommendations are below. Rec: 1. continue minced moist diet, consider BSS to assess swallow safety 2. ensure enlive TIDWM 3. routine bowel care 4. scaled wt this admit 5. IF TF in view of refusing meals d/t confusion recommend Jevity 1.2 at 75 ml/hr. Addendum: 11/23/20 at [address] Amended: Links added.
[2020-11-23] MEDS: dextrose 5%-1/4 normal saline 1,000 ML IV SCH (17:49)
[2020-11-23 18:00] VITALS: BP 99/62
--- NOTE | 2020-11-23 18:12 | NUR ---
Patient in room PCU 3023. I have received report from Sera BERMEO and had the opportunity to ask questions and assume patient care.
[2020-11-23] MEDS: Melatonin 3mg tablet PO SCH (20:32)
[2020-11-23 22:00] VITALS: BP 101/70
[2020-11-24] VITALS (7 sets, daily range): BP systolic 97–126; BP diastolic 57–78
[2020-11-24] MEDS ORDERED: calcium carbonate 500mg chew tablet PO ONE (00:35)
[2020-11-24] MEDS: piperacillin/tazo 3.375gm/50ml 50 ML IV SCH ×3 (00:53→17:23)
[2020-11-24] MEDS: dextrose 5%-1/4 normal saline 1,000 ML IV SCH ×2 (01:58→19:00)
[2020-11-24] MEDS: ipratropium/albuterol 3ml nebule NEB SCH ×6 (03:38→23:17)
[2020-11-24] MEDS: lactose-reduced food (Ensure Enlive) - 237ml bottle PO SCH ×2 (07:00→08:00)
[2020-11-24] MEDS: K and/or MAG REPLACEMENT MC SCH ×2 (08:00→20:00)
[2020-11-24] MEDS: ascorbic acid 500mg tablet PO SCH (08:56)
[2020-11-24] MEDS: amLODIPine 5mg tablet PO SCH (09:00)
[2020-11-24] MEDS: methylPREDNISolone sod succ 125mg/2ml vial IV SCH (09:02)
[2020-11-24] MEDS: lactobacillus rhamnosus 10,000 MMU CELLS/CAPSULE PO SCH ×2 (09:04→22:43)
[2020-11-24] MEDS: fludrocortisone acetate 0.1mg tablet PO SCH (09:09)
[2020-11-24 09:13] LABS: BASOPHILS % (AUTO) 0.1 % (0-1); EOSINOPHILS % (AUTO) 0.3 % (0-6); HEMOGLOBIN 7.8 g/dl (14.0-17.9); LYMPHOCYTES % (AUTO) 7.2 % (21-51); MEAN CORPUSCULAR HEMOGLOBIN 30.6 PG (27.0-31.0); MEAN CORPUSCULAR HGB CONC 32.6 g/dL (33.0-36.5); MEAN CORPUSCULAR VOLUME 93.9 FL (78-98); MEAN PLATELET VOLUME 9.4 FL (7.4-10.4); MONOCYTES # (AUTO) 1.2 X10'3 (0-0.9); MONOCYTES % (AUTO) 9.2 % (2-12); NEUTROPHILS # (AUTO) 11.1 X10'3 (1.8-7.7); NEUTROPHILS % (AUTO) 83.2 % (42-75); PLATELET COUNT 213 X10'3 (140-440); RED BLOOD COUNT 2.56 X10'6 (4.70-6.10); RED CELL DISTRIBUTION WIDTH 14.3 % (11.5-14.5); WHITE BLOOD COUNT 13.3 X10'3 (4.5-11.0)
[2020-11-24 09:42] LABS: ALANINE AMINOTRANSFERASE 69 U/L (12-78); ALBUMIN/GLOBULIN RATIO 0.7 (1.1-1.5); ALKALINE PHOSPHATASE 61 IU/L (46-116); ANION GAP 10 (8-16); ASPARTATE AMINO TRANSFERASE 35 U/L (10-37); BILIRUBIN,TOTAL 0.6 MG/DL (0.1-1.0); BLOOD UREA NITROGEN 51 MG/DL (7-18); BUN/CREATININE RATIO 38.9 (5.4-32.0); CALCIUM 8.2 MG/DL (8.5-10.1); CHLORIDE 107 MMOL/L (99-107); CREATININE 1.31 MG/DL (0.60-1.10); GLUCOSE 95 MG/DL (70-104); POTASSIUM 3.5 MMOL/L (3.5-5.1); SODIUM 141 MMOL/L (135-145); TOTAL CARBON DIOXIDE 24.1 MMOL/L (24-32); TOTAL PROTEIN 4.9 G/DL (6.4-8.2); eGFR 53 ML/MIN
[2020-11-24] MEDS ORDERED: PEG 3350/Na sulf,bicarb,Cl/KCl oral sol 4 liter bottle PO ONE (12:35)
--- NOTE | 2020-11-24 19:12 | NUR ---
Patient in room PCU 3023. I have received report from ALBERT BERMEO and had the opportunity to ask questions and assume patient care.
[2020-11-24] MEDS ORDERED: VANCOMYCIN LEVEL IV ONE (21:30)
[2020-11-24 21:57] LABS: HEMATOCRIT 27.5 % (42.0-52.0); HEMOGLOBIN 9.3 g/dl (14.0-17.9); MEAN CORPUSCULAR HEMOGLOBIN 30.7 PG (27.0-31.0); MEAN CORPUSCULAR HGB CONC 33.7 g/dL (33.0-36.5); MEAN CORPUSCULAR VOLUME 91.1 FL (78-98); MEAN PLATELET VOLUME 9.4 FL (7.4-10.4); PLATELET COUNT 186 X10'3 (140-440); RED BLOOD COUNT 3.02 X10'6 (4.70-6.10); WHITE BLOOD COUNT 10.1 X10'3 (4.5-11.0)
[2020-11-24] MEDS: vancomycin/NS 1 GM ADD-VANTAGE 250 ML IV SCH (22:43)
[2020-11-24] MEDS: Melatonin 3mg tablet PO SCH (22:43)
[2020-11-25] MEDS: piperacillin/tazo 3.375gm/50ml 50 ML IV SCH ×2 (01:01→08:50)
[2020-11-25] MEDS: HYDROcodone/acetaminophen 10/325mg tab PO PRN (02:14)
[2020-11-25] MEDS: ipratropium/albuterol 3ml nebule NEB SCH ×6 (03:00→23:18)
--- NOTE | 2020-11-25 04:58 | NUR ---
Despite encouraging pt throughout the night to drink bowel prep, pt has drank approximately 1/3 of golSpineVisionly jug. Pt has frequently refused to drink any more. Pt stooling liquid, however it is brown and not clear. digital proofing and platemaker notified.
[2020-11-25 05:20] VITALS: BP 144/86
[2020-11-25] MEDS: dextrose 5%-1/4 normal saline 1,000 ML IV SCH ×3 (05:22→22:30)
--- NOTE | 2020-11-25 05:27 | NUR ---
end noc note Pt frequently BMing in bed. Cleaning stool off of pt and changing bed Q1HR and even more. Pt has developed redness to his scrotal area, applying cream PRN. Pt has refused to drink any more bowel prep since 0200 after drinking 1/3 of it. Bowel movements are liquid, however still brown and not clear. Pt has become somewhat aggressive overnight, grabbing an aide and not letting go along with swinging at her. medical field representative notified.
--- NOTE | 2020-11-25 06:47 | NUR ---
Problems reprioritized. Patient report given, questions answered & plan of care reviewed with Vicky BERMEO.
[2020-11-25] MEDS: methylPREDNISolone sod succ 125mg/2ml vial IV SCH (08:45)
[2020-11-25] MEDS: lactobacillus rhamnosus 10,000 MMU CELLS/CAPSULE PO SCH ×2 (08:50→20:19)
[2020-11-25] MEDS: fludrocortisone acetate 0.1mg tablet PO SCH (08:50)
[2020-11-25 09:45] LABS: BASOPHILS % (AUTO) 0.1 % (0-1); EOSINOPHILS # (AUTO) 0.1 X10'3 (0-0.9); EOSINOPHILS % (AUTO) 1.1 % (0-6); HEMATOCRIT 26.2 % (42.0-52.0); LYMPHOCYTES # (AUTO) 1.3 X10'3 (1.1-4.8); LYMPHOCYTES % (AUTO) 10.5 % (21-51); MEAN CORPUSCULAR HEMOGLOBIN 31.2 PG (27.0-31.0); MEAN CORPUSCULAR HGB CONC 34.3 g/dL (33.0-36.5); MEAN CORPUSCULAR VOLUME 90.9 FL (78-98); MEAN PLATELET VOLUME 9.4 FL (7.4-10.4); MONOCYTES # (AUTO) 1.1 X10'3 (0-0.9); MONOCYTES % (AUTO) 9.1 % (2-12); NEUTROPHILS # (AUTO) 9.5 X10'3 (1.8-7.7); NEUTROPHILS % (AUTO) 79.2 % (42-75); PLATELET COUNT 199 X10'3 (140-440); RED BLOOD COUNT 2.88 X10'6 (4.70-6.10)
[2020-11-25 10:13] LABS: ALANINE AMINOTRANSFERASE 83 U/L (12-78); ALBUMIN 2.2 G/DL (3.4-5.0); ALBUMIN/GLOBULIN RATIO 0.7 (1.1-1.5); ALKALINE PHOSPHATASE 69 IU/L (46-116); ANION GAP 13 (8-16); ASPARTATE AMINO TRANSFERASE 46 U/L (10-37); BILIRUBIN,TOTAL 1.2 MG/DL (0.1-1.0); BLOOD UREA NITROGEN 38 MG/DL (7-18); BUN/CREATININE RATIO 28.8 (5.4-32.0); CHLORIDE 108 MMOL/L (99-107); CREATININE 1.32 MG/DL (0.60-1.10); GLUCOSE 77 MG/DL (70-104); POTASSIUM 3.1 MMOL/L (3.5-5.1); SODIUM 144 MMOL/L (135-145); TOTAL CARBON DIOXIDE 22.6 MMOL/L (24-32); TOTAL PROTEIN 5.3 G/DL (6.4-8.2); eGFR 52 ML/MIN
[2020-11-25 11:00] VITALS: BP 130/72
[2020-11-25] MEDS: lactose-reduced food (Ensure Enlive) - 237ml bottle PO SCH ×2 (13:00→18:00)
[2020-11-25] MEDS: ziprasidone IM 20mg inj **IM only IM PRN (15:38)
[2020-11-25] MEDS ORDERED: iohexol 350MG/ML 100ml bottle IV ONE (15:48)
[2020-11-25] MEDS: K and/or MAG REPLACEMENT MC SCH ×2 (17:48→19:50)
[2020-11-25 18:00] VITALS: BP 134/69
--- NOTE | 2020-11-25 18:20 | NUR ---
Patient in room PCU 3023. I have received report from Nicolette BERMEO and had the opportunity to ask questions and assume patient care.
--- NOTE | 2020-11-25 18:23 | NUR ---
Report to Nicole BERMEO
[2020-11-25] MEDS ORDERED: magnesium Cl slow-release 64mg tablet PO PRN (19:15)
[2020-11-25] MEDS ORDERED: potassium Cl 40MEQ/1/2NS 520ml 520 ML IV PRN (19:15)
[2020-11-25] MEDS ORDERED: magnesium 4gm in 100ml NS 100 ML IV PRN (19:15)
[2020-11-25] MEDS ORDERED: potassium Cl 20 mEq SR tablet PO PRN (19:15)
[2020-11-25] MEDS ORDERED: VANCOmycin 1250MG/NS 250ml Bag 250 ML IV SCH (20:00)
[2020-11-25] MEDS: Melatonin 3mg tablet PO SCH (20:19)
[2020-11-25] MEDS: potassium Cl 20 mEq SR tablet PO PRN (20:19)
[2020-11-25] MEDS: sulfamethoxazole/trimethoprim DS (800/160mg) tablet PO SCH (20:20)
[2020-11-25 22:00] VITALS: BP 144/94
[2020-11-26 02:00] VITALS: BP 101/79
[2020-11-26] MEDS: ipratropium/albuterol 3ml nebule NEB SCH ×6 (03:00→23:00)
--- NOTE | 2020-11-26 03:47 | NUR ---
Unable to replace patient's potassium due to refusal. Attempted to give pills with applesauce and was unable to give patient last 2 doses of potassium 20mEq.
[2020-11-26 06:00] VITALS: BP 139/85
--- NOTE | 2020-11-26 06:28 | NUR ---
Problems reprioritized. Patient report given, questions answered & plan of care reviewed with Savannah BERMEO.
[2020-11-26 06:49] LABS: BASOPHILS % (AUTO) 0.1 % (0-1); EOSINOPHILS # (AUTO) 0.2 X10'3 (0-0.9); EOSINOPHILS % (AUTO) 1.4 % (0-6); HEMATOCRIT 24.4 % (42.0-52.0); HEMOGLOBIN 8.5 g/dl (14.0-17.9); LYMPHOCYTES # (AUTO) 1.1 X10'3 (1.1-4.8); LYMPHOCYTES % (AUTO) 9.8 % (21-51); MEAN CORPUSCULAR HEMOGLOBIN 31.4 PG (27.0-31.0); MEAN CORPUSCULAR HGB CONC 34.7 g/dL (33.0-36.5); MEAN CORPUSCULAR VOLUME 90.6 FL (78-98); MEAN PLATELET VOLUME 9.1 FL (7.4-10.4); MONOCYTES # (AUTO) 1.1 X10'3 (0-0.9); MONOCYTES % (AUTO) 9.1 % (2-12); NEUTROPHILS # (AUTO) 9.3 X10'3 (1.8-7.7); NEUTROPHILS % (AUTO) 79.6 % (42-75); PLATELET COUNT 182 X10'3 (140-440); RED BLOOD COUNT 2.69 X10'6 (4.70-6.10); RED CELL DISTRIBUTION WIDTH 15.2 % (11.5-14.5); WHITE BLOOD COUNT 11.7 X10'3 (4.5-11.0)
[2020-11-26 07:15] LABS: ALANINE AMINOTRANSFERASE 80 U/L (12-78); ALBUMIN/GLOBULIN RATIO 0.7 (1.1-1.5); ALKALINE PHOSPHATASE 65 IU/L (46-116); ANION GAP 8 (8-16); ASPARTATE AMINO TRANSFERASE 44 U/L (10-37); BILIRUBIN,TOTAL 0.8 MG/DL (0.1-1.0); BLOOD UREA NITROGEN 26 MG/DL (7-18); CALCIUM 7.4 MG/DL (8.5-10.1); CHLORIDE 109 MMOL/L (99-107); CREATININE 1.13 MG/DL (0.60-1.10); GLUCOSE 86 MG/DL (70-104); MAGNESIUM 1.7 MG/DL (1.5-2.4); POTASSIUM 3.3 MMOL/L (3.5-5.1); SODIUM 141 MMOL/L (135-145); TOTAL CARBON DIOXIDE 24.3 MMOL/L (24-32); TOTAL PROTEIN 4.9 G/DL (6.4-8.2); eGFR 62 ML/MIN
[2020-11-26] MEDS: K and/or MAG REPLACEMENT MC SCH ×2 (08:00→20:00)
[2020-11-26] MEDS: lactose-reduced food (Ensure Enlive) - 237ml bottle PO SCH ×3 (08:00→18:00)
[2020-11-26] MEDS: lactobacillus rhamnosus 10,000 MMU CELLS/CAPSULE PO SCH ×2 (09:04→20:29)
[2020-11-26] MEDS: sulfamethoxazole/trimethoprim DS (800/160mg) tablet PO SCH ×2 (09:04→20:29)
[2020-11-26] MEDS: potassium Cl 20 mEq SR tablet PO PRN ×2 (09:07→14:46)
[2020-11-26 11:00] VITALS: BP 114/72
[2020-11-26 15:00] VITALS: BP 111/70
[2020-11-26 15:49] VITALS: BP_SYST 150; BP_SYST 74; BP_SYST 83; BP_SYST 92; BP_DIAS 41; BP_DIAS 44; BP_DIAS 49; BP_DIAS 66
--- NOTE | 2020-11-26 17:00 | NUR ---
Pt extremely orthostatic during physical therapy, documented in orthostatics interventions. Md aware and new orders written.
[2020-11-26] MEDS: normal saline 1000ml 1,000 ML IV SCH (17:43)
[2020-11-26] MEDS: Melatonin 3mg tablet PO SCH (20:29)
[2020-11-27] MEDS: normal saline 1000ml 1,000 ML IV SCH ×2 (02:50→12:50)
[2020-11-27] MEDS: ipratropium/albuterol 3ml nebule NEB SCH ×5 (03:00→20:06)
[2020-11-27 06:30] VITALS: BP 120/70
--- NOTE | 2020-11-27 06:30 | NUR ---
Received report from Sharifa BERMEO, [facility].
[2020-11-27] MEDS: lactose-reduced food (Ensure Enlive) - 237ml bottle PO SCH ×3 (08:00→18:00)
[2020-11-27] MEDS: potassium Cl 20 mEq SR tablet PO PRN ×4 (08:29→20:17)
[2020-11-27] MEDS: lactobacillus rhamnosus 10,000 MMU CELLS/CAPSULE PO SCH ×2 (08:29→20:00)
[2020-11-27] MEDS: sulfamethoxazole/trimethoprim DS (800/160mg) tablet PO SCH ×2 (08:29→20:00)
[2020-11-27] MEDS ORDERED: fludrocortisone acetate 0.1mg tablet PO SCH (08:30)
[2020-11-27] MEDS: K and/or MAG REPLACEMENT MC SCH ×2 (08:30→20:28)
[2020-11-27 08:49] LABS: BASOPHILS % (AUTO) 0.1 % (0-1); EOSINOPHILS # (AUTO) 0.4 X10'3 (0-0.9); EOSINOPHILS % (AUTO) 3.3 % (0-6); HEMATOCRIT 26.8 % (42.0-52.0); LYMPHOCYTES # (AUTO) 0.8 X10'3 (1.1-4.8); LYMPHOCYTES % (AUTO) 7.6 % (21-51); MEAN CORPUSCULAR HEMOGLOBIN 31.1 PG (27.0-31.0); MEAN CORPUSCULAR HGB CONC 33.4 g/dL (33.0-36.5); MEAN CORPUSCULAR VOLUME 92.9 FL (78-98); MEAN PLATELET VOLUME 9.1 FL (7.4-10.4); MONOCYTES % (AUTO) 8.6 % (2-12); NEUTROPHILS # (AUTO) 8.9 X10'3 (1.8-7.7); NEUTROPHILS % (AUTO) 80.4 % (42-75); PLATELET COUNT 178 X10'3 (140-440); RED BLOOD COUNT 2.89 X10'6 (4.70-6.10); RED CELL DISTRIBUTION WIDTH 14.8 % (11.5-14.5); WHITE BLOOD COUNT 11.1 X10'3 (4.5-11.0)
[2020-11-27 09:09] LABS: ALANINE AMINOTRANSFERASE 80 U/L (12-78); ALBUMIN 2.2 G/DL (3.4-5.0); ALBUMIN/GLOBULIN RATIO 0.7 (1.1-1.5); ALKALINE PHOSPHATASE 80 IU/L (46-116); ANION GAP 10 (8-16); ASPARTATE AMINO TRANSFERASE 40 U/L (10-37); BILIRUBIN,TOTAL 0.9 MG/DL (0.1-1.0); BLOOD UREA NITROGEN 17 MG/DL (7-18); BUN/CREATININE RATIO 13.2 (5.4-32.0); CALCIUM 7.7 MG/DL (8.5-10.1); CHLORIDE 107 MMOL/L (99-107); CREATININE 1.29 MG/DL (0.60-1.10); GLUCOSE 98 MG/DL (70-104); MAGNESIUM 1.5 MG/DL (1.5-2.4); POTASSIUM 3.3 MMOL/L (3.5-5.1); SODIUM 138 MMOL/L (135-145); TOTAL PROTEIN 5.3 G/DL (6.4-8.2); eGFR 53 ML/MIN
[2020-11-27 11:00] VITALS: BP 116/68
--- NOTE | 2020-11-27 11:28 | NUR ---
PATIENT BECAME AGITATED DURING 1100 SVN TX, RT STOPPED TREATMENT. NO SOB OR DISTRESS NOTED. RT WILL RETURN AT A LATER TIME. Addendum: 11/27/20 at 1133 by Teresa Rdogers RT Amended: Links added.
[2020-11-27] MEDS: HYDROcodone/acetaminophen 10/325mg tab PO PRN (12:05)
--- NOTE | 2020-11-27 14:07 | NUR ---
Reassessment: Pt with clear liquid diet since 11/24 d/t GI bleed. Per VELVET CUTTER note from today pt can tolerate minced moist diet when GI bleed resolved and off clear liquids. poor appetite and confused. Spoke with bedside RN regarding results of VELVET CUTTER evaluation and current GI bleed which appears to have resolved, last bloody stool 11/25 and per MD note no further bleeding. Pt does not have a feeding tube however TF recommendations will remain available if decided to TF in view of suboptimal PO intake. Rec: 1. As medically indicated continue minced moist diet per VELVET CUTTER recs 2. when diet is advanced, ensure enlive TIDWM 3. routine bowel care 4. scaled wt this admit 5. IF TF in view of refusing meals d/t confusion recommend Jevity 1.2 at 75 ml/hr. Addendum: 11/27/20 at [address] Amended: Links added.
[2020-11-27 15:00] VITALS: BP 125/66
[2020-11-27] MEDS: Potassium Cl inj 20 MEQ in normal saline 1000ml 990 ML IV SCH (17:20)
--- NOTE | 2020-11-27 18:22 | NUR ---
Gave report to Sharifa BERMEO, transferred care.
[2020-11-27 20:00] VITALS: BP 106/59
[2020-11-27] MEDS: Melatonin 3mg tablet PO SCH (20:00)
[2020-11-27] MEDS: magnesium Cl slow-release 64mg tablet PO SCH (20:15)
[2020-11-28] VITALS (8 sets, daily range): BP systolic 102–142; BP diastolic 67–86
[2020-11-28] MEDS: ipratropium/albuterol 3ml nebule NEB SCH ×7 (00:22→23:00)
[2020-11-28] MEDS: Potassium Cl inj 20 MEQ in normal saline 1000ml 990 ML IV SCH ×2 (03:20→12:41)
--- NOTE | 2020-11-28 06:00 | NUR ---
REPORTR RECEIVED BY DARON BERMEO. RECEIVED PT WITH NO IV ACCESS. PLACED 20 G TO LEFT HAND. RESUME MEDS AND FLIUDS. PT HAD A LOSSE STOOL DARK. CLEAN PATIENT WITH NURSE AND CHANGED THE LINEN. PT CONFUSED SITTER IN PLACE. ASSUME CARE
[2020-11-28 07:03] LABS: ALANINE AMINOTRANSFERASE 67 U/L (12-78); ALBUMIN 2.3 G/DL (3.4-5.0); ALBUMIN/GLOBULIN RATIO 0.7 (1.1-1.5); ALKALINE PHOSPHATASE 85 IU/L (46-116); ANION GAP 11 (8-16); ASPARTATE AMINO TRANSFERASE 38 U/L (10-37); BILIRUBIN,TOTAL 1.1 MG/DL (0.1-1.0); BLOOD UREA NITROGEN 16 MG/DL (7-18); BUN/CREATININE RATIO 12.9 (5.4-32.0); CALCIUM 8.1 MG/DL (8.5-10.1); CHLORIDE 108 MMOL/L (99-107); CREATININE 1.24 MG/DL (0.60-1.10); GLUCOSE 78 MG/DL (70-104); MAGNESIUM 1.6 MG/DL (1.5-2.4); SODIUM 138 MMOL/L (135-145); TOTAL CARBON DIOXIDE 18.7 MMOL/L (24-32); TOTAL PROTEIN 5.5 G/DL (6.4-8.2); eGFR 56 ML/MIN
[2020-11-28 07:05] LABS: BASOPHILS % (AUTO) 0.2 % (0-1); EOSINOPHILS # (AUTO) 0.2 X10'3 (0-0.9); EOSINOPHILS % (AUTO) 1.7 % (0-6); HEMOGLOBIN 8.9 g/dl (14.0-17.9); LYMPHOCYTES # (AUTO) 0.9 X10'3 (1.1-4.8); LYMPHOCYTES % (AUTO) 8.6 % (21-51); MEAN CORPUSCULAR HGB CONC 34.3 g/dL (33.0-36.5); MEAN CORPUSCULAR VOLUME 93.2 FL (78-98); MEAN PLATELET VOLUME 9.6 FL (7.4-10.4); MONOCYTES % (AUTO) 9.4 % (2-12); NEUTROPHILS # (AUTO) 8.2 X10'3 (1.8-7.7); NEUTROPHILS % (AUTO) 80.1 % (42-75); PLATELET COUNT 164 X10'3 (140-440); RED BLOOD COUNT 2.79 X10'6 (4.70-6.10); RED CELL DISTRIBUTION WIDTH 15.2 % (11.5-14.5); WHITE BLOOD COUNT 10.2 X10'3 (4.5-11.0)
[2020-11-28] MEDS: lactobacillus rhamnosus 10,000 MMU CELLS/CAPSULE PO SCH ×2 (07:49→22:29)
[2020-11-28] MEDS: sulfamethoxazole/trimethoprim DS (800/160mg) tablet PO SCH ×2 (07:49→22:29)
[2020-11-28] MEDS: fludrocortisone acetate 0.1mg tablet PO SCH (07:50)
[2020-11-28] MEDS: magnesium Cl slow-release 64mg tablet PO SCH ×2 (07:50→22:29)
[2020-11-28] MEDS: lactose-reduced food (Ensure Enlive) - 237ml bottle PO SCH ×5 (08:00→20:21)
[2020-11-28] MEDS: K and/or MAG REPLACEMENT MC SCH ×2 (08:00→20:00)
--- NOTE | 2020-11-28 08:00 | NUR ---
ADMINSTERED GEODON 10 MG TO LEFT DELTOID. PT COMABATIVE AND MOVING PULLING LINES WILL MONITOR PATIENT
--- NOTE | 2020-11-28 10:00 | NUR ---
PT CONTINUE TO TRY TO GET OUT OF BED. SITTER IN PLACE. PT KEEPS PULLING ON SERVIN AND TRY TO REMOVE IV. PT LAYIN ON BED SERVIN IN PLACE. PT ON O2 2 LITERS AT THIS TIME.
[2020-11-28] MEDS: ziprasidone IM 20mg inj **IM only IM PRN (15:25)
--- NOTE | 2020-11-28 17:25 | NUR ---
pt still pulling on phan lines and nasal canula. pt does not have an iv at this time. pt has been pulling ivs out. will encourage po luid intake will let md know
--- NOTE | 2020-11-28 17:53 | NUR ---
patient moving yonathan the bed. pt hit himself to lower lip. small bleeding. also observed redness with white patches to scrotum applied cream barrier to proetec skin. will pass report
[2020-11-28] MEDS ORDERED: VANCOMYCIN LEVEL IV ONE (19:30)
[2020-11-28] MEDS: potassium Cl 20mEq in NS 1,000 ML IV SCH (20:30)
[2020-11-28] MEDS: Melatonin 3mg tablet PO SCH (22:29)
[2020-11-29 02:00] VITALS: BP 135/78
[2020-11-29] MEDS: ipratropium/albuterol 3ml nebule NEB SCH ×6 (03:18→23:05)
--- NOTE | 2020-11-29 03:34 | NUR ---
PAGER ID: [phone] MESSAGE: PT 3024K TREAT FOR GI BLEED REALLY HARD STICK. SEVERAL EXPERT TRY WITH NO SUCCESS. LABS ORDERS EARLY AM NOT DRAWN. PLEASE ADVISE. MYRNA FROM [facility] [id number] (151 character message out of a maximum of 240)
--- NOTE | 2020-11-29 05:32 | NUR ---
WAITING CASING SOAKER BACK PAGER ID: [phone] MESSAGE: PT 3023B, DNR SAT 85%, O2:6 L, RECEIVE BREAT. TX ALREADY. PLEASE ADVISE. MYRNA Porfirio [id number]
[2020-11-29 06:00] VITALS: BP 174/98
--- NOTE | 2020-11-29 06:29 | NUR ---
REPORT GIVEN TO AURELIANO. AT BEDSIDE NURSE CHECK ON PATIENT STATUS. SATURATION 93 % AT THIS MOMENT AFTER RESPIRATORY INTERVENTION. VISIBLE TREMORS.
[2020-11-29] MEDS: potassium Cl 20mEq in NS 1,000 ML IV SCH ×2 (06:30→16:18)
[2020-11-29 07:41] LABS: BASOPHILS % (AUTO) 0.2 % (0-1); EOSINOPHILS # (AUTO) 0.2 X10'3 (0-0.9); EOSINOPHILS % (AUTO) 1.7 % (0-6); HEMATOCRIT 25.8 % (42.0-52.0); HEMOGLOBIN 8.7 g/dl (14.0-17.9); LYMPHOCYTES # (AUTO) 0.9 X10'3 (1.1-4.8); LYMPHOCYTES % (AUTO) 7.8 % (21-51); MEAN CORPUSCULAR HEMOGLOBIN 31.3 PG (27.0-31.0); MEAN CORPUSCULAR HGB CONC 33.5 g/dL (33.0-36.5); MEAN CORPUSCULAR VOLUME 93.4 FL (78-98); MEAN PLATELET VOLUME 8.7 FL (7.4-10.4); MONOCYTES # (AUTO) 0.9 X10'3 (0-0.9); MONOCYTES % (AUTO) 8.2 % (2-12); NEUTROPHILS % (AUTO) 82.1 % (42-75); PLATELET COUNT 153 X10'3 (140-440); RED BLOOD COUNT 2.77 X10'6 (4.70-6.10); RED CELL DISTRIBUTION WIDTH 15.5 % (11.5-14.5); WHITE BLOOD COUNT 10.9 X10'3 (4.5-11.0)
[2020-11-29] MEDS: K and/or MAG REPLACEMENT MC SCH ×2 (08:00→20:00)
[2020-11-29] MEDS: magnesium Cl slow-release 64mg tablet PO SCH ×3 (08:00→20:54)
[2020-11-29 08:58] LABS: ABG BASE EXCESS -8.2 mmol/L (-2.0-2.0); ABG HCO3 14.4 mmol/L (22.0-26.0); ABG PCO2 (T) 20.8 mmHg (35.0-48.0); ABG PO2 (T) 77.4 mmHg (75.0-100.0); ALLEN'S TEST POSITIVE; FCOHb 0.5 % (0.0-3.9); FLOW 15 L/min; FMetHb 0.2 % (0.0-1.5); FO2Hb 94.3 % (94-97); TOTAL HEMOGLOBIN 8.5 G/dl (14.0-18.0)
[2020-11-29 09:25] LABS: ALANINE AMINOTRANSFERASE 56 U/L (12-78); ALBUMIN 2.2 G/DL (3.4-5.0); ALBUMIN/GLOBULIN RATIO 0.7 (1.1-1.5); ALKALINE PHOSPHATASE 85 IU/L (46-116); ANION GAP 13 (8-16); ASPARTATE AMINO TRANSFERASE 33 U/L (10-37); BLOOD UREA NITROGEN 15 MG/DL (7-18); BUN/CREATININE RATIO 12.2 (5.4-32.0); CHLORIDE 109 MMOL/L (99-107); CREATININE 1.23 MG/DL (0.60-1.10); GLUCOSE 72 MG/DL (70-104); MAGNESIUM 1.6 MG/DL (1.5-2.4); SODIUM 141 MMOL/L (135-145); TOTAL CARBON DIOXIDE 19.2 MMOL/L (24-32); TOTAL PROTEIN 5.5 G/DL (6.4-8.2); eGFR 56 ML/MIN
[2020-11-29] MEDS: sulfamethoxazole/trimethoprim DS (800/160mg) tablet PO SCH ×2 (10:15→20:54)
[2020-11-29] MEDS: lactobacillus rhamnosus 10,000 MMU CELLS/CAPSULE PO SCH ×3 (10:15→20:54)
[2020-11-29] MEDS: fludrocortisone acetate 0.1mg tablet PO SCH (10:15)
[2020-11-29 11:00] VITALS: BP 159/84
--- NOTE | 2020-11-29 11:23 | NUR ---
notified. PAGER ID: [phone] MESSAGE: Re: Eligio Amato. [id number]. Chest x-ray results have been resulted and ABG. Concern for PNA/COVID. FYI. Thanks.
[2020-11-29 15:00] VITALS: BP 136/82
[2020-11-29] MEDS: furosemide 20 MG/2 ML vial IV SCH (17:16)
[2020-11-29 18:00] VITALS: BP 150/85
[2020-11-29] MEDS: lactose-reduced food (Ensure Enlive) - 237ml bottle PO SCH (18:00)
--- NOTE | 2020-11-29 18:18 | NUR ---
Problems reprioritized. Patient report given, questions answered & plan of care reviewed with JEAN-CLAUDE Zamora.
[2020-11-29] MEDS: Melatonin 3mg tablet PO SCH ×2 (20:54→21:00)
[2020-11-29 22:00] VITALS: BP 99/56
[2020-11-29] MEDS: ziprasidone IM 20mg inj **IM only IM PRN (22:36)
--- NOTE | 2020-11-29 23:02 | NUR ---
Patient de-sat to 77% on 15L [place], placed patient non-rebreather at 15L was able to maintain sat in low 90's Patient was very agitated and pulling off his oxygen, geodon 10mg IV given with little effect. Spoke with Dr. Aquino, kelly'd new order for soft limb restraints and an ABG.
[2020-11-29 23:26] LABS: ABG BASE EXCESS -7.1 mmol/L (-2.0-2.0); ABG HCO3 14.4 mmol/L (22.0-26.0); ABG OXYGEN SATURATION 84.9 % (94-97); ABG PCO2 (T) 17.6 mmHg (35.0-48.0); ABG PO2 (T) 44.8 mmHg (75.0-100.0); ALLEN'S TEST POSITIVE; FCOHb 0.5 % (0.0-3.9); FMetHb 0.1 % (0.0-1.5); FO2Hb 84.4 % (94-97); PATIENT TEMPERATURE 36.1; TOTAL HEMOGLOBIN 8.5 G/dl (14.0-18.0)
--- NOTE | 2020-11-29 23:38 | NUR ---
Relayed results of ABG to Dr. George no new orders at this time
[2020-11-30 02:00] VITALS: BP 131/72
[2020-11-30] MEDS: ipratropium/albuterol 3ml nebule NEB SCH ×5 (02:59→20:56)
[2020-11-30 06:00] VITALS: BP 125/81
--- NOTE | 2020-11-30 06:23 | NUR ---
Patient report given, questions answered & plan of care reviewed with JEAN-CLAUDE Levine.
--- NOTE | 2020-11-30 06:52 | NUR ---
report received by destini soliman. pt laying on bed with bed at lowest position. pt has sof restraints to upper extremities. no visible injury observed. pt has a sitter in place. pt sleeping at this time. pt has soft pads around the bed to protect from injury. will assume care
[2020-11-30 07:53] LABS: BASOPHILS % (AUTO) 0.3 % (0-1); EOSINOPHILS # (AUTO) 0.2 X10'3 (0-0.9); EOSINOPHILS % (AUTO) 1.8 % (0-6); HEMATOCRIT 24.5 % (42.0-52.0); HEMOGLOBIN 8.4 g/dl (14.0-17.9); LYMPHOCYTES # (AUTO) 0.9 X10'3 (1.1-4.8); LYMPHOCYTES % (AUTO) 8.7 % (21-51); MEAN CORPUSCULAR HEMOGLOBIN 31.7 PG (27.0-31.0); MEAN CORPUSCULAR HGB CONC 34.3 g/dL (33.0-36.5); MEAN CORPUSCULAR VOLUME 92.4 FL (78-98); MEAN PLATELET VOLUME 9.2 FL (7.4-10.4); MONOCYTES % (AUTO) 9.5 % (2-12); NEUTROPHILS # (AUTO) 8.1 X10'3 (1.8-7.7); NEUTROPHILS % (AUTO) 79.7 % (42-75); PLATELET COUNT 147 X10'3 (140-440); RED BLOOD COUNT 2.66 X10'6 (4.70-6.10); RED CELL DISTRIBUTION WIDTH 15.8 % (11.5-14.5); WHITE BLOOD COUNT 10.1 X10'3 (4.5-11.0)
[2020-11-30] MEDS: K and/or MAG REPLACEMENT MC SCH ×3 (08:00→20:21)
[2020-11-30] MEDS: lactose-reduced food (Ensure Enlive) - 237ml bottle PO SCH ×3 (08:00→18:00)
[2020-11-30 08:28] LABS: ALANINE AMINOTRANSFERASE 44 U/L (12-78); ALBUMIN/GLOBULIN RATIO 0.6 (1.1-1.5); ALKALINE PHOSPHATASE 82 IU/L (46-116); ANION GAP 14 (8-16); ASPARTATE AMINO TRANSFERASE 28 U/L (10-37); BILIRUBIN,TOTAL 0.9 MG/DL (0.1-1.0); BLOOD UREA NITROGEN 15 MG/DL (7-18); BUN/CREATININE RATIO 11.4 (5.4-32.0); CALCIUM 7.7 MG/DL (8.5-10.1); CHLORIDE 110 MMOL/L (99-107); CREATININE 1.32 MG/DL (0.60-1.10); GLUCOSE 76 MG/DL (70-104); MAGNESIUM 1.6 MG/DL (1.5-2.4); SODIUM 143 MMOL/L (135-145); TOTAL CARBON DIOXIDE 18.7 MMOL/L (24-32); TOTAL PROTEIN 5.3 G/DL (6.4-8.2); eGFR 52 ML/MIN
[2020-11-30 08:33] LABS: POTASSIUM 2.9 MMOL/L (3.5-5.1)
--- NOTE | 2020-11-30 08:38 | NUR ---
PAGER ID: [phone] MESSAGE: dr. soraya chapin is Abner from [facility] calling regarding paulie rosales in 23 b. pt potassium is 2.9? can we replace thank you
[2020-11-30] MEDS: magnesium Cl slow-release 64mg tablet PO SCH ×2 (09:43→20:19)
[2020-11-30] MEDS: fludrocortisone acetate 0.1mg tablet PO SCH (09:45)
[2020-11-30] MEDS: HYDROcodone/acetaminophen 5mg/325mg tablet PO PRN (09:46)
[2020-11-30] MEDS: lactobacillus rhamnosus 10,000 MMU CELLS/CAPSULE PO SCH ×2 (09:46→20:19)
[2020-11-30] MEDS: sulfamethoxazole/trimethoprim DS (800/160mg) tablet PO SCH ×2 (09:46→20:19)
[2020-11-30] MEDS: furosemide 20 MG/2 ML vial IV SCH ×2 (09:47→20:19)
[2020-11-30] MEDS ORDERED: potassium Cl 20 mEq SR tablet PO PRN ×2 (10:45)
[2020-11-30] MEDS ORDERED: magnesium Cl slow-release 64mg tablet PO PRN (10:45)
[2020-11-30] MEDS ORDERED: magnesium 4gm in 100ml NS 100 ML IV PRN (10:45)
[2020-11-30 11:00] VITALS: BP 107/68
--- NOTE | 2020-11-30 11:20 | NUR ---
RESTRAINTS REMOVED AT THIS TIME. PT CALM HAVING GOOD CONVERSATIONS WITH NURSE AND MD. PT STILL CONFUSED BUT IS ABLE TO COMPREHEND SLIGHTLY ON CONVERSATIONS. WILL LEAVE RESTRAINTS OUT AT THIS TIME.
[2020-11-30] MEDS: potassium Cl 40MEQ/1/2NS 520ml 520 ML IV PRN ×2 (12:44→20:20)
--- NOTE | 2020-11-30 13:18 | NUR ---
Reassessment: Pt now day 6 on clear liquid diet not meeting estimated nutrient needs. No further bleeding per MD note. TC to RN, recommend diet advancement to minced moist food (MM5) with thin liquids per ST recs with MD approval given no further bleeding. RD also paged MD regarding diet advancement 11/29. Pt with a low [place] of 12. No edema or wounds per physical assessment. LBM 11/29. Will continue to follow closely. Rec: 1. As medically indicated continue minced moist diet per THEATER MANAGER recs 2. when diet is advanced, ensure enlive TIDWM 3. routine bowel care 4. scaled wt this admit 5. IF TF in view of refusing meals d/t confusion recommend Jevity 1.2 at 75 ml/hr. Addendum: 11/30/20 at [address] Amended: Links added.
[2020-11-30 15:00] VITALS: BP 111/65
--- NOTE | 2020-11-30 18:30 | NUR ---
report given to destini soliman. pt alert x3. pt laying on bed with sitter. pt back on o2 high flow 40 l at 100 % fio2. pt going up to 88 90 percent. pt inrestarints soft no injury. phan in place. will transfer care.
[2020-11-30] MEDS: Melatonin 3mg tablet PO SCH (20:19)
[2020-11-30 22:00] VITALS: BP 97/68
[2020-12-01] VITALS (7 sets, daily range): BP systolic 101–146; BP diastolic 67–88
[2020-12-01] MEDS: ipratropium/albuterol 3ml nebule NEB SCH ×7 (00:15→23:00)
[2020-12-01] MEDS: ziprasidone IM 20mg inj **IM only IM PRN (01:40)
--- NOTE | 2020-12-01 06:21 | NUR ---
Patient report given, questions answered & plan of care reviewed with JEAN-CLAUDE Carballo.
[2020-12-01 07:01] LABS: BASOPHILS % (AUTO) 0.4 % (0-1); EOSINOPHILS # (AUTO) 0.2 X10'3 (0-0.9); EOSINOPHILS % (AUTO) 2.8 % (0-6); HEMATOCRIT 25.8 % (42.0-52.0); HEMOGLOBIN 8.7 g/dl (14.0-17.9); LYMPHOCYTES # (AUTO) 0.7 X10'3 (1.1-4.8); LYMPHOCYTES % (AUTO) 7.7 % (21-51); MEAN CORPUSCULAR HEMOGLOBIN 30.9 PG (27.0-31.0); MEAN CORPUSCULAR HGB CONC 33.7 g/dL (33.0-36.5); MEAN CORPUSCULAR VOLUME 91.7 FL (78-98); MEAN PLATELET VOLUME 8.9 FL (7.4-10.4); MONOCYTES # (AUTO) 0.6 X10'3 (0-0.9); MONOCYTES % (AUTO) 7.2 % (2-12); NEUTROPHILS % (AUTO) 81.9 % (42-75); PLATELET COUNT 159 X10'3 (140-440); RED BLOOD COUNT 2.82 X10'6 (4.70-6.10); WHITE BLOOD COUNT 8.6 X10'3 (4.5-11.0)
--- NOTE | 2020-12-01 07:20 | NUR ---
Patient in room PCU 3023. I have received report from Sera BERMEO and had the opportunity to ask questions and assume patient care.
[2020-12-01] MEDS: K and/or MAG REPLACEMENT MC SCH ×4 (08:00→20:00)
[2020-12-01] MEDS: lactose-reduced food (Ensure Enlive) - 237ml bottle PO SCH ×3 (08:00→18:00)
[2020-12-01 08:02] LABS: ALANINE AMINOTRANSFERASE 40 U/L (12-78); ALBUMIN 2.1 G/DL (3.4-5.0); ALBUMIN/GLOBULIN RATIO 0.6 (1.1-1.5); ALKALINE PHOSPHATASE 92 IU/L (46-116); ANION GAP 14 (8-16); ASPARTATE AMINO TRANSFERASE 26 U/L (10-37); BILIRUBIN,TOTAL 0.8 MG/DL (0.1-1.0); BLOOD UREA NITROGEN 15 MG/DL (7-18); BUN/CREATININE RATIO 10.2 (5.4-32.0); CALCIUM 8.1 MG/DL (8.5-10.1); CHLORIDE 111 MMOL/L (99-107); CREATININE 1.47 MG/DL (0.60-1.10); GLUCOSE 92 MG/DL (70-104); POTASSIUM 3.1 MMOL/L (3.5-5.1); SODIUM 145 MMOL/L (135-145); TOTAL CARBON DIOXIDE 19.8 MMOL/L (24-32); TOTAL PROTEIN 5.9 G/DL (6.4-8.2); eGFR 46 ML/MIN
[2020-12-01] MEDS ORDERED: POTASSIUM BICARB 20meq eff tab 20 MEQ TABLET.EFF PO PRN (08:19)
[2020-12-01] MEDS: sulfamethoxazole/trimethoprim DS (800/160mg) tablet PO SCH (08:25)
[2020-12-01] MEDS: lactobacillus rhamnosus 10,000 MMU CELLS/CAPSULE PO SCH ×2 (08:25→20:19)
[2020-12-01] MEDS: magnesium Cl slow-release 64mg tablet PO SCH ×2 (08:25→20:18)
[2020-12-01] MEDS: furosemide 20 MG/2 ML vial IV SCH ×2 (08:26→20:19)
[2020-12-01] MEDS: fludrocortisone acetate 0.1mg tablet PO SCH (08:26)
--- NOTE | 2020-12-01 11:55 | NUR ---
Patient is alert and oriented to self only. Restraints are not in use. Patient is agitated when given directions to do something but is easily re-directed. Sitter at bedside.
[2020-12-01] MEDS: POTASSIUM BICARB 20meq eff tab 20 MEQ TABLET.EFF PO PRN ×2 (14:56→20:19)
--- NOTE | 2020-12-01 18:20 | NUR ---
Problems reprioritized. Patient report given, questions answered & plan of care reviewed with Samantha BERMEO.
--- NOTE | 2020-12-01 18:21 | NUR ---
Patient in room PCU 3023. I have received report from Kait BERMEO and had the opportunity to ask questions and assume patient care.
[2020-12-01] MEDS: Melatonin 3mg tablet PO SCH (20:19)
[2020-12-02] MEDS: POTASSIUM BICARB 20meq eff tab 20 MEQ TABLET.EFF PO PRN (01:28)
[2020-12-02] MEDS: ziprasidone IM 20mg inj **IM only IM PRN (01:28)
[2020-12-02 02:00] VITALS: BP 110/72
[2020-12-02] MEDS: ipratropium/albuterol 3ml nebule NEB SCH ×6 (03:00→23:33)
--- NOTE | 2020-12-02 06:13 | NUR ---
Problems reprioritized. Patient report given, questions answered & plan of care reviewed with Kait BERMEO.
--- NOTE | 2020-12-02 06:23 | NUR ---
Problems reprioritized. Patient report given, questions answered & plan of care reviewed with David RN.
[2020-12-02 06:34] LABS: BASOPHILS % (AUTO) 0.4 % (0-1); EOSINOPHILS # (AUTO) 0.3 X10'3 (0-0.9); EOSINOPHILS % (AUTO) 3.3 % (0-6); HEMATOCRIT 27.3 % (42.0-52.0); LYMPHOCYTES # (AUTO) 0.8 X10'3 (1.1-4.8); LYMPHOCYTES % (AUTO) 8.9 % (21-51); MEAN CORPUSCULAR HEMOGLOBIN 30.8 PG (27.0-31.0); MEAN CORPUSCULAR HGB CONC 33.1 g/dL (33.0-36.5); MEAN PLATELET VOLUME 8.7 FL (7.4-10.4); MONOCYTES # (AUTO) 0.7 X10'3 (0-0.9); MONOCYTES % (AUTO) 8.1 % (2-12); NEUTROPHILS # (AUTO) 6.8 X10'3 (1.8-7.7); NEUTROPHILS % (AUTO) 79.3 % (42-75); PLATELET COUNT 160 X10'3 (140-440); RED BLOOD COUNT 2.93 X10'6 (4.70-6.10); RED CELL DISTRIBUTION WIDTH 16.3 % (11.5-14.5); WHITE BLOOD COUNT 8.5 X10'3 (4.5-11.0)
--- NOTE | 2020-12-02 06:37 | NUR ---
Patient in room PCU 3023. I have received report from Samantha BERMEO and had the opportunity to ask questions and assume patient care.
[2020-12-02 07:00] VITALS: BP 123/77
[2020-12-02 07:01] LABS: ALANINE AMINOTRANSFERASE 35 U/L (12-78); ALBUMIN 2.1 G/DL (3.4-5.0); ALBUMIN/GLOBULIN RATIO 0.5 (1.1-1.5); ALKALINE PHOSPHATASE 99 IU/L (46-116); ANION GAP 13 (8-16); ASPARTATE AMINO TRANSFERASE 26 U/L (10-37); BILIRUBIN,TOTAL 0.9 MG/DL (0.1-1.0); BLOOD UREA NITROGEN 18 MG/DL (7-18); CALCIUM 8.5 MG/DL (8.5-10.1); CHLORIDE 110 MMOL/L (99-107); GLUCOSE 95 MG/DL (70-104); POTASSIUM 3.7 MMOL/L (3.5-5.1); SODIUM 145 MMOL/L (135-145); TOTAL CARBON DIOXIDE 21.9 MMOL/L (24-32); TOTAL PROTEIN 6.4 G/DL (6.4-8.2)
[2020-12-02 07:12] LABS: BUN/CREATININE RATIO 12.3 (5.4-32.0); CREATININE 1.46 MG/DL (0.60-1.10); eGFR 46 ML/MIN
[2020-12-02] MEDS: furosemide 20 MG/2 ML vial IV SCH ×2 (07:25→20:14)
[2020-12-02] MEDS: lactobacillus rhamnosus 10,000 MMU CELLS/CAPSULE PO SCH ×2 (07:25→20:11)
[2020-12-02] MEDS: magnesium Cl slow-release 64mg tablet PO SCH ×2 (07:25→20:11)
[2020-12-02] MEDS: lactose-reduced food (Ensure Enlive) - 237ml bottle PO SCH ×5 (08:00→18:00)
[2020-12-02] MEDS: K and/or MAG REPLACEMENT MC SCH ×4 (08:00→19:57)
[2020-12-02] MEDS: fludrocortisone acetate 0.1mg tablet PO SCH (08:19)
--- NOTE | 2020-12-02 10:03 | NUR ---
MD at bedside. Discussed plan of care, poor appetite, low martin score, poor respiratory status, sleep cycle and vital signs. MD stated that he is going to talk to case management regarding involving with in discussion for comfort care. Will continue to monitor closely.
--- NOTE | 2020-12-02 10:30 | NUR ---
Reassessment: Diet was advanced today to minced and moist per FIBER DRIER OPERATOR recs after 8 days of clear liquid diet. Per physical assessment pt is confused, agitated, impulsive; pulls at lines. Will need assistance with meals, has a sitter to assist. Will continue to follow. Rec: 1. Minced moist diet per FIBER DRIER OPERATOR recs 2. ensure enlive TIDWM 3. routine bowel care 4. IF TF in view of refusing meals d/t confusion recommend Jevity 1.2 at 75 ml/hr. Addendum: 12/02/20 at [address] Amended: Links added.
[2020-12-02 11:00] VITALS: BP 121/75
[2020-12-02 15:00] VITALS: BP 106/68
--- NOTE | 2020-12-02 17:20 | NUR ---
Spoke with patients Magdalena, she stated that her and her daughter Blank will be in tomorrow to visit patient and give permission to change patients status to comfort care. Explained what comfort measures entails and she stated she is aware and would come in tomorrow morning.
[2020-12-02 18:00] VITALS: BP 98/64
--- NOTE | 2020-12-02 18:28 | NUR ---
Problems reprioritized. Patient report given, questions answered & plan of care reviewed with Dilma BERMEO.
--- NOTE | 2020-12-02 18:30 | NUR ---
Patient in room PCU 3023. I have received report from Kait BERMEO and had the opportunity to ask questions and assume patient care.
[2020-12-02] MEDS: HYDROcodone/acetaminophen 10/325mg tab PO PRN (20:11)
[2020-12-02] MEDS: Melatonin 3mg tablet PO SCH (20:29)
[2020-12-02 22:00] VITALS: BP 103/73
[2020-12-03 02:00] VITALS: BP 103/73
[2020-12-03] MEDS: ziprasidone IM 20mg inj **IM only IM PRN (02:15)
[2020-12-03] MEDS: ipratropium/albuterol 3ml nebule NEB SCH ×6 (03:26→23:17)
--- NOTE | 2020-12-03 06:15 | NUR ---
Problems reprioritized. Patient report given, questions answered & plan of care reviewed with Kait BERMEO.
[2020-12-03 06:17] LABS: BASOPHILS # (AUTO) 0.1 X10'3 (0-0.2); BASOPHILS % (AUTO) 0.8 % (0-1); EOSINOPHILS # (AUTO) 0.3 X10'3 (0-0.9); EOSINOPHILS % (AUTO) 3.5 % (0-6); HEMATOCRIT 27.7 % (42.0-52.0); HEMOGLOBIN 9.2 g/dl (14.0-17.9); LYMPHOCYTES # (AUTO) 0.9 X10'3 (1.1-4.8); MEAN CORPUSCULAR HEMOGLOBIN 31.1 PG (27.0-31.0); MEAN CORPUSCULAR HGB CONC 33.3 g/dL (33.0-36.5); MEAN CORPUSCULAR VOLUME 93.3 FL (78-98); MEAN PLATELET VOLUME 8.6 FL (7.4-10.4); MONOCYTES # (AUTO) 0.7 X10'3 (0-0.9); MONOCYTES % (AUTO) 8.1 % (2-12); NEUTROPHILS # (AUTO) 6.2 X10'3 (1.8-7.7); NEUTROPHILS % (AUTO) 76.6 % (42-75); PLATELET COUNT 163 X10'3 (140-440); RED BLOOD COUNT 2.97 X10'6 (4.70-6.10); WHITE BLOOD COUNT 8.1 X10'3 (4.5-11.0)
--- NOTE | 2020-12-03 06:32 | NUR ---
Patient in room PCU 3023. I have received report from Stephanie BERMEO and had the opportunity to ask questions and assume patient care.
--- NOTE | 2020-12-03 06:35 | NUR ---
Problems reprioritized. Patient report given, questions answered & plan of care reviewed with Kait BERMEO.
[2020-12-03 06:45] LABS: ALANINE AMINOTRANSFERASE 33 U/L (12-78); ALBUMIN 2.1 G/DL (3.4-5.0); ALBUMIN/GLOBULIN RATIO 0.5 (1.1-1.5); ALKALINE PHOSPHATASE 100 IU/L (46-116); ANION GAP 11 (8-16); ASPARTATE AMINO TRANSFERASE 20 U/L (10-37); BILIRUBIN,TOTAL 0.7 MG/DL (0.1-1.0); BLOOD UREA NITROGEN 25 MG/DL (7-18); BUN/CREATININE RATIO 16.3 (5.4-32.0); CALCIUM 8.3 MG/DL (8.5-10.1); CHLORIDE 110 MMOL/L (99-107); CREATININE 1.53 MG/DL (0.60-1.10); GLUCOSE 88 MG/DL (70-104); POTASSIUM 3.1 MMOL/L (3.5-5.1); SODIUM 148 MMOL/L (135-145); TOTAL CARBON DIOXIDE 26.6 MMOL/L (24-32); TOTAL PROTEIN 6.7 G/DL (6.4-8.2); eGFR 44 ML/MIN
[2020-12-03 07:00] VITALS: BP 145/87
[2020-12-03] MEDS: K and/or MAG REPLACEMENT MC SCH ×4 (08:00→20:00)
[2020-12-03] MEDS: lactose-reduced food (Ensure Enlive) - 237ml bottle PO SCH ×6 (08:00→18:00)
[2020-12-03] MEDS: furosemide 20 MG/2 ML vial IV SCH ×2 (08:22→20:23)
[2020-12-03] MEDS: POTASSIUM BICARB 20meq eff tab 20 MEQ TABLET.EFF PO PRN ×3 (08:23→20:24)
[2020-12-03] MEDS: fludrocortisone acetate 0.1mg tablet PO SCH (08:23)
[2020-12-03] MEDS: magnesium Cl slow-release 64mg tablet PO SCH ×2 (08:23→20:24)
[2020-12-03] MEDS: lactobacillus rhamnosus 10,000 MMU CELLS/CAPSULE PO SCH ×2 (08:23→20:23)
[2020-12-03 11:00] VITALS: BP 131/84
--- NOTE | 2020-12-03 11:20 | NUR ---
RN CURRENTLY AT PATIENTS BEDSIDE DISCUSSING CARE PLAN WITH FAMILY. 1100 SVN TX NOT GIVEN. RT WILL RETURN AT A LATER TIME FOR SVN TX. Addendum: 12/03/20 at 1121 by Teresa Rodgers RT Amended: Links added.
[2020-12-03] MEDS ORDERED: POTASSIUM BICARB 20meq eff tab 20 MEQ TABLET.EFF PO PRN (12:20)
--- NOTE | 2020-12-03 12:28 | NUR ---
PAGER ID: [phone] MESSAGE: [id number] Marva Bass - Family is at bedside, requesting to speak with you regarding care. Daughter is in from out of town. Kait BERMEO [phone]
--- NOTE | 2020-12-03 13:34 | NUR ---
at bedside, discussing current condition with family present at bedside. The patients daughter Blank and his Magdalena was present. MD explained conditions and current interventions that have been tried without much success. All questions were answered. Family is going to consider comfort care but would like to speak with the rest of the family. Current code status was reviewed. Family agrees with current POC and will notify nursing if they decide for comfort measure only. Will continue to monitor patient closely.
[2020-12-03 15:00] VITALS: BP 124/74
--- NOTE | 2020-12-03 15:05 | NUR ---
RT AT BEDSIDE FOR 1500 SVN TX. PATIENT BECAME AGITATED IN THE MIDDLE OF TREATMENT. TREATMENT STOPPED. PT CURRENTLY ON HIGH FLOW VAPOTHERM, 30L 80% SPO2 96%, CLEAR AND DIMINISHED BREATHSOUNDS. NIGHTSHIFT WILL RETURN FOR 1900 SVN TX. Addendum: 12/03/20 at 1508 by Teresa Rodgers RT Amended: Links added.
[2020-12-03 18:00] VITALS: BP 129/89
--- NOTE | 2020-12-03 18:28 | NUR ---
Patient in room PCU 3023. I have received report from Kait BERMEO and had the opportunity to ask questions and assume patient care.
--- NOTE | 2020-12-03 18:37 | NUR ---
Problems reprioritized. Patient report given, questions answered & plan of care reviewed with Samantha BERMEO.
[2020-12-03] MEDS: Melatonin 3mg tablet PO SCH (20:24)
[2020-12-03 22:00] VITALS: BP 101/60
[2020-12-04 02:00] VITALS: BP 114/75
[2020-12-04] MEDS: ipratropium/albuterol 3ml nebule NEB SCH ×6 (03:11→23:25)
[2020-12-04 06:00] VITALS: BP 107/69
--- NOTE | 2020-12-04 06:00 | NUR ---
report received by martha soliman. patient layin on bed. pt sleeping at this time. pt on high flow and has a phan . will assume care
--- NOTE | 2020-12-04 06:43 | NUR ---
Problems reprioritized. Patient report given, questions answered & plan of care reviewed with Abner BERMEO.
[2020-12-04 06:48] LABS: BASOPHILS % (AUTO) 0.6 % (0-1); EOSINOPHILS # (AUTO) 0.3 X10'3 (0-0.9); EOSINOPHILS % (AUTO) 4.3 % (0-6); HEMATOCRIT 27.7 % (42.0-52.0); HEMOGLOBIN 9.1 g/dl (14.0-17.9); LYMPHOCYTES # (AUTO) 0.8 X10'3 (1.1-4.8); LYMPHOCYTES % (AUTO) 10.9 % (21-51); MEAN CORPUSCULAR HEMOGLOBIN 30.4 PG (27.0-31.0); MEAN CORPUSCULAR HGB CONC 32.7 g/dL (33.0-36.5); MEAN PLATELET VOLUME 8.7 FL (7.4-10.4); MONOCYTES # (AUTO) 0.6 X10'3 (0-0.9); MONOCYTES % (AUTO) 8.6 % (2-12); NEUTROPHILS # (AUTO) 5.7 X10'3 (1.8-7.7); NEUTROPHILS % (AUTO) 75.6 % (42-75); PLATELET COUNT 170 X10'3 (140-440); RED BLOOD COUNT 2.98 X10'6 (4.70-6.10); RED CELL DISTRIBUTION WIDTH 16.4 % (11.5-14.5); WHITE BLOOD COUNT 7.5 X10'3 (4.5-11.0)
[2020-12-04 07:25] LABS: ALANINE AMINOTRANSFERASE 29 U/L (12-78); ALBUMIN 2.1 G/DL (3.4-5.0); ALBUMIN/GLOBULIN RATIO 0.5 (1.1-1.5); ALKALINE PHOSPHATASE 101 IU/L (46-116); ANION GAP 11 (8-16); ASPARTATE AMINO TRANSFERASE 20 U/L (10-37); BILIRUBIN,TOTAL 0.6 MG/DL (0.1-1.0); BLOOD UREA NITROGEN 28 MG/DL (7-18); BUN/CREATININE RATIO 19.3 (5.4-32.0); CALCIUM 8.7 MG/DL (8.5-10.1); CHLORIDE 110 MMOL/L (99-107); CREATININE 1.45 MG/DL (0.60-1.10); GLUCOSE 107 MG/DL (70-104); POTASSIUM 3.6 MMOL/L (3.5-5.1); SODIUM 150 MMOL/L (135-145); TOTAL CARBON DIOXIDE 29.1 MMOL/L (24-32); TOTAL PROTEIN 6.6 G/DL (6.4-8.2); eGFR 47 ML/MIN
[2020-12-04] MEDS: K and/or MAG REPLACEMENT MC SCH ×4 (07:45→20:00)
[2020-12-04] MEDS: lactose-reduced food (Ensure Enlive) - 237ml bottle PO SCH ×6 (08:00→18:00)
[2020-12-04] MEDS: lactobacillus rhamnosus 10,000 MMU CELLS/CAPSULE PO SCH ×2 (08:00→19:39)
[2020-12-04] MEDS: magnesium Cl slow-release 64mg tablet PO SCH ×2 (08:00→19:39)
[2020-12-04] MEDS: fludrocortisone acetate 0.1mg tablet PO SCH (08:30)
[2020-12-04] MEDS: furosemide 20 MG/2 ML vial IV SCH ×2 (09:00→19:39)
[2020-12-04 11:00] VITALS: BP 128/67
[2020-12-04 15:00] VITALS: BP 103/60
--- NOTE | 2020-12-04 15:11 | NUR ---
pt pleasant at this time. tried to encourage feeding s but patient states hes not hungry. will continue to encourage feedings and fluids. sitter at bedisde. pt able to move in bed. will continue to monitor
--- NOTE | 2020-12-04 16:03 | NUR ---
cleaned patient face and applied shampoo cap. pt tolerated well. pt o2 sats improving with less oxygenation. reposition patient sitter still in place. will continue to monitor.
--- NOTE | 2020-12-04 16:39 | NUR ---
spoke to son angel at this tiem and updated him regarding the patient prognosis. angel wants to drive from [place] and see his father and make the determination of placeng dad on comfort care. angel states he has spoken to her mother patient s and wants to see him before making decision. will make decision harmony and wants son angel to be the determination of making the decision. answered all questions will cont to fu
--- NOTE | 2020-12-04 17:41 | NUR ---
pt had a large loose stool. pt able to move. removed optifoam at this time wll apply one later tonight as pt is getting restless and aggravated. pt moving all extremities well. will cont to monitor
--- NOTE | 2020-12-04 18:38 | NUR ---
report given to ariel soliman. pt laying on bed with bd at lowest postion. no distress noted at this time. transferred care.
--- NOTE | 2020-12-04 18:58 | NUR ---
Patient in room PCU 3023. I have received report from Abner BERMEO and had the opportunity to ask questions and assume patient care.
[2020-12-04 19:00] VITALS: BP 100/67
[2020-12-04] MEDS: Melatonin 3mg tablet PO SCH (19:39)
--- NOTE | 2020-12-04 22:13 | NUR ---
Page Sent promotional table spacer PAGER ID: [phone] MESSAGE: [id number] - Kali Amato - pt ALOC, hx dementia, pt continuously taking off hi daisy tower oxygen and is aggressive when staff attempts to put O2 on. Requesting order renewal for restraints. Pt was last in restraints 11/29 - 11/30. [phone] David BERMEO
--- NOTE | 2020-12-04 22:58 | NUR ---
Dr. yoo returned page and provided telephone order for soft wrist restraints. This RN will place order and continue to monitor the patient frequently.
[2020-12-04 23:00] VITALS: BP 140/89
[2020-12-05 03:00] VITALS: BP 92/59
[2020-12-05] MEDS: ipratropium/albuterol 3ml nebule NEB SCH ×4 (03:25→14:47)
[2020-12-05 06:00] VITALS: BP 104/70
--- NOTE | 2020-12-05 06:22 | NUR ---
Problems reprioritized. Patient report given, questions answered & plan of care reviewed with Abner BERMEO
--- NOTE | 2020-12-05 06:28 | NUR ---
report received by ariel soliman. pt on restraints soft to upper extremities. pt has a sitter in place. pt awake and able to move all extremities no signs of injury. pt did not respond to questions as he ignored the situation. will speak to family today to update plan of care. hayley assume care
[2020-12-05 07:09] LABS: BASOPHILS % (AUTO) 0.4 % (0-1); EOSINOPHILS # (AUTO) 0.3 X10'3 (0-0.9); EOSINOPHILS % (AUTO) 4.1 % (0-6); HEMATOCRIT 29.6 % (42.0-52.0); HEMOGLOBIN 9.6 g/dl (14.0-17.9); LYMPHOCYTES # (AUTO) 0.9 X10'3 (1.1-4.8); LYMPHOCYTES % (AUTO) 12.4 % (21-51); MEAN CORPUSCULAR HEMOGLOBIN 30.4 PG (27.0-31.0); MEAN CORPUSCULAR HGB CONC 32.4 g/dL (33.0-36.5); MEAN CORPUSCULAR VOLUME 93.7 FL (78-98); MEAN PLATELET VOLUME 8.9 FL (7.4-10.4); MONOCYTES # (AUTO) 0.8 X10'3 (0-0.9); NEUTROPHILS # (AUTO) 5.5 X10'3 (1.8-7.7); NEUTROPHILS % (AUTO) 73.1 % (42-75); PLATELET COUNT 182 X10'3 (140-440); RED BLOOD COUNT 3.16 X10'6 (4.70-6.10); RED CELL DISTRIBUTION WIDTH 16.6 % (11.5-14.5); WHITE BLOOD COUNT 7.6 X10'3 (4.5-11.0)
[2020-12-05] MEDS: lactose-reduced food (Ensure Enlive) - 237ml bottle PO SCH ×6 (07:28→20:00)
[2020-12-05] MEDS: furosemide 20 MG/2 ML vial IV SCH (07:28)
[2020-12-05] MEDS: fludrocortisone acetate 0.1mg tablet PO SCH (07:28)
[2020-12-05] MEDS: magnesium Cl slow-release 64mg tablet PO SCH (07:28)
[2020-12-05] MEDS: lactobacillus rhamnosus 10,000 MMU CELLS/CAPSULE PO SCH (07:28)
[2020-12-05 07:53] LABS: ALANINE AMINOTRANSFERASE 27 U/L (12-78); ALBUMIN 2.1 G/DL (3.4-5.0); ALBUMIN/GLOBULIN RATIO 0.4 (1.1-1.5); ALKALINE PHOSPHATASE 102 IU/L (46-116); ANION GAP 13 (8-16); ASPARTATE AMINO TRANSFERASE 20 U/L (10-37); BILIRUBIN,TOTAL 0.6 MG/DL (0.1-1.0); BLOOD UREA NITROGEN 34 MG/DL (7-18); CALCIUM 8.6 MG/DL (8.5-10.1); CHLORIDE 110 MMOL/L (99-107); CREATININE 1.62 MG/DL (0.60-1.10); GLUCOSE 95 MG/DL (70-104); POTASSIUM 3.5 MMOL/L (3.5-5.1); SODIUM 151 MMOL/L (135-145); TOTAL PROTEIN 6.9 G/DL (6.4-8.2); eGFR 41 ML/MIN
[2020-12-05] MEDS: K and/or MAG REPLACEMENT MC SCH ×2 (08:00)
--- NOTE | 2020-12-05 10:55 | NUR ---
Reassessment: Per physical assessment pt is confused, agitated, impulsive; pulls at lines. Diet minced and moist per DATABASES SOFTWARE CONSULTANT recs after 8 days of clear liquid diet. Mostly refusing meals and ensure, did drink 25% of the ensure enlive this morning and 0-25% of breakfast with assistance. Sodium is increasing, 151 today. Receiving lasix. Would benefit from D5% for hydration, notified MD via page. Per CM note patient's family is discussing comfort care. Rec: 1. Minced moist diet per DATABASES SOFTWARE CONSULTANT recs 2. ensure enlive TIDWM 3. routine bowel care Addendum: 12/05/20 at [address] Amended: Links added.
[2020-12-05 11:00] VITALS: BP 100/60
--- NOTE | 2020-12-05 12:30 | NUR ---
at bedside. explained the gudino of care. states she will be talking to son regarding comfort care. naswered all questions and concerns. pt laying on bed with hig flow cannula. no distress noted will continue to monitor.
--- NOTE | 2020-12-05 14:47 | NUR ---
at [facility] with son and . md explained the prognosis and answered all questions regarding patient sattus. pt still confused with highflow in place.family will decide what to proceed with will continue to monitor.
[2020-12-05 15:00] VITALS: BP 86/55
--- NOTE | 2020-12-05 16:00 | NUR ---
orders for comfort care obtain patient will be evaluated at this time will cntinue to asses patient and maintain comfort
--- NOTE | 2020-12-05 16:39 | NUR ---
PAGER ID: [phone] MESSAGE: DR. HUTTON PATIENT FAMILY IN [phone] IS PLACING PATIENT ON COMFORT CARE. CAN I GET ORDERS PLEASE. THANKS.
[2020-12-05] MEDS ORDERED: acetaminophen 325mg tablet PO PRN (17:25)
--- NOTE | 2020-12-05 18:20 | NUR ---
report given to hedy soliman. pt laying on bed with bed at lowest position. pt on comfort care. pt place on o2 2 liters. sat well above 90. sitter in place. all questions answered. will transfer care.
--- NOTE | 2020-12-05 18:30 | NUR ---
Patient in room PCU 3023. I have received report from Abner BERMEO and had the opportunity to ask questions and assume patient care.
[2020-12-05] MEDS: docusate sod 100mg capsule PO SCH (20:00)
[2020-12-05] MEDS: sennosides/docusate sodium tablet PO SCH (20:00)
[2020-12-05] MEDS: morphine 10mg/0.5ml (conc. morphine) oral syringe PO PRN (20:16)
[2020-12-05] MEDS: Melatonin 3mg tablet PO SCH (21:00)
[2020-12-05] MEDS: diazepam inj 5 MG/ML inj. IV PRN (21:43)
[2020-12-06] MEDS: diazepam inj 5 MG/ML inj. IV PRN (04:00)
[2020-12-06 06:00] VITALS: BP 96/62
--- NOTE | 2020-12-06 06:00 | NUR ---
Problems reprioritized. Patient report given, questions answered & plan of care reviewed with Abner BERMEO.
--- NOTE | 2020-12-06 06:50 | NUR ---
REPORT RECEIVED BY SHAYNA BERMEO. PT CONFUSED AT THIS TIME. PT ON RESTRAINTS AT THIS TIME WILL GET ORDER TO RENEW RESTRAINTS. AT THIS TIME WILL REMOVED RESTRAINTS. PT ON COMFORT CARE AT THIS TIME. NO DISTRESS NOTED PT ON O2 2 LITERS SAT ABOVE 90S. SERVIN IN PLACE. WILL ASSUME CARE.
[2020-12-06] MEDS: sennosides/docusate sodium tablet PO SCH ×2 (07:05→20:00)
[2020-12-06] MEDS: docusate sod 100mg capsule PO SCH ×2 (07:05→20:00)
--- NOTE | 2020-12-06 10:50 | NUR ---
patient sleeping wo any distress. pt laying on bed with bed at lowest postion. pt on o2 2 liters nc. pt has a phan yellow urine observed. no injury at this time . sitter in place.
[2020-12-06] MEDS: morphine 10mg/0.5ml (conc. morphine) oral syringe PO PRN ×2 (11:44→20:38)
[2020-12-06] MEDS: lactose-reduced food (Ensure Enlive) - 237ml bottle PO SCH ×2 (13:03→18:00)
[2020-12-06 18:00] VITALS: BP 105/77
--- NOTE | 2020-12-06 18:20 | NUR ---
report given to hannah soliman. pt laying on bed with bed at lowest postion. no acute distress noted. pt with sitter. transfer care
--- NOTE | 2020-12-06 19:02 | NUR ---
Patient in room PCU 3023. I have received report from Abner BERMEO and had the opportunity to ask questions and assume patient care.
[2020-12-06] MEDS: Melatonin 3mg tablet PO SCH (20:56)
[2020-12-07] MEDS: diazepam inj 5 MG/ML inj. IV PRN (02:53)
[2020-12-07 06:00] VITALS: BP 60/35
--- NOTE | 2020-12-07 06:00 | NUR ---
REPORT RECEIVED BY ANYA BERMEO. PT LAYING ON BED WITH BED AT LOWEST POSTION. PT DENIES ANY ACUTE DISTRESS OR PAIN AT THIS TIME. PT VS SIGNS ARE NOT STABLE BUT PATIENT SEEMS FINE. PT STATES HE WILL SLEEP. PATIENT ON COMFORT MEASURES WILL KEEP PATIENT PAIN FREE AND COMFORTABLE. PATIENT HAS A SERVIN IN PLACE. YELLOW URINE OBSERVED. WILL ROUND FREQUENTLY SITTER AT BEDSIDE
[2020-12-07] MEDS: sennosides/docusate sodium tablet PO SCH ×2 (08:00→20:00)
[2020-12-07] MEDS: docusate sod 100mg capsule PO SCH ×2 (08:00→20:00)
[2020-12-07] MEDS: lactose-reduced food (Ensure Enlive) - 237ml bottle PO SCH ×3 (08:58→18:00)
--- NOTE | 2020-12-07 11:44 | NUR ---
patient sleeping at this time. no distress noted. patient sitter with him. spoke to regarding patient condition. pt states she will see him tomorrow. will cont to monitor
[2020-12-07] MEDS: morphine 10mg/0.5ml (conc. morphine) oral syringe PO PRN (12:15)
--- NOTE | 2020-12-07 13:54 | NUR ---
F/u: Noted that pt has been made DNR with comfort care. PO diet remains active at this time and pt still receiving ONS with fluctuating acceptance. Will continue to follow per LOS. Rec: 1. Minced moist diet per RING BARKER OPERATOR recs 2. ensure enlive TIDWM 3. routine bowel care Addendum: 12/07/20 at [address] Amended: Links added.
--- NOTE | 2020-12-07 16:10 | NUR ---
called regarding patient bp respis 35 . pt stated she can make it until tomorrow. she understands the bp being low and will see him in the morning
--- NOTE | 2020-12-07 17:51 | NUR ---
reposition patient at this time. pt starting having little berg breathing. will contineu to montor and pass on report. is notified. will see patient in am. states she cant see him on this stage.
--- NOTE | 2020-12-07 18:32 | NUR ---
report given to brice soliman. pt on comfort care. pt on o2 2 liters. pt confused. family updated throuht the day. transfer care
[2020-12-07] MEDS: Melatonin 3mg tablet PO SCH (21:00)
[2020-12-08 06:00] VITALS: BP 76/41
--- NOTE | 2020-12-08 06:33 | NUR ---
Patient in room PCU 3023. I have received report from Brooke soliman and had the opportunity to ask questions and assume patient care. patient on comfort care. tabby lloyd s breathing at this time. mottled extremities. will keep patient comfortable.
[2020-12-08] MEDS: lactose-reduced food (Ensure Enlive) - 237ml bottle PO SCH ×3 (08:00→18:00)
[2020-12-08] MEDS: sennosides/docusate sodium tablet PO SCH ×2 (08:00→20:00)
[2020-12-08] MEDS: docusate sod 100mg capsule PO SCH ×2 (08:00→20:00)
[2020-12-08] MEDS: morphine 10mg/0.5ml (conc. morphine) oral syringe PO PRN ×2 (08:54→12:48)
[2020-12-08] MEDS: diazepam inj 5 MG/ML inj. IV PRN (11:19)
--- NOTE | 2020-12-08 15:07 | NUR ---
patient just left. patient resting comfortable at this time. reposition patient at this time. gave me the choice of the [facility] of there choice [facility] on [address]. will follow up and con to monitor
--- NOTE | 2020-12-08 17:03 | NUR ---
patient on right side at this time. ptbreathing shallow and retractions on upper chest observed. pt on comfort measures will monitor
[2020-12-08 18:00] VITALS: BP 93/70
--- NOTE | 2020-12-08 18:27 | NUR ---
report given to marialuisa soliman. pt on comfort measures. pt repostion at this time. answered all questions. pt breathing shallow will transfer care
[2020-12-08] MEDS: Melatonin 3mg tablet PO SCH (21:00)
[2020-12-09] MEDS: diazepam inj 5 MG/ML inj. IV PRN ×2 (01:32→08:20)
--- NOTE | 2020-12-09 06:08 | NUR ---
report given to Debby BERMEO. pt on comfort measures. pt repostion at this time. answered all questions. pt breathing shallow will transfer care
--- NOTE | 2020-12-09 06:55 | NUR ---
Patient in room PCU 3011. I have received report from Sharifa BERMEO and had the opportunity to ask questions and assume patient care.
[2020-12-09 07:00] VITALS: BP 57/36
[2020-12-09] MEDS: morphine 10mg/0.5ml (conc. morphine) oral syringe PO PRN (07:18)
[2020-12-09] MEDS: docusate sod 100mg capsule PO SCH (07:21)
[2020-12-09] MEDS: sennosides/docusate sodium tablet PO SCH (07:22)
--- NOTE | 2020-12-09 07:22 | NUR ---
Patient has air hunger, facial grimacing noted when repositioning with pillows. PRN Roxonal given per MD order. Heels are offloaded of bed.
[2020-12-09] MEDS: lactose-reduced food (Ensure Enlive) - 237ml bottle PO SCH ×2 (08:00→13:00)
[2020-12-09] MEDS ORDERED: morphine 10mg/0.5ml (conc. morphine) oral syringe PO PRN ×2 (09:55→11:25)
--- NOTE | 2020-12-09 11:08 | NUR ---
PAGER ID: [phone] MESSAGE: [phone], Morphine 10 mg not effective, can we increase frequency from q4 to q1hr PRN? Kait BERMEO [id number]
--- NOTE | 2020-12-09 12:12 | NUR ---
RN IS TO DOCUMENT YES TO ALL APPLICABLE AREAS Pronouncement of : Y 1. Time Physician Notified: 1140 2. Date of :12/09/20 3. Time of : 1135 4. DNR/Withdraw life support documented: Y 5. Monitor strip has been placed on chart: Y 6. Assessment process is of one-minute duration and includes following criteria: Y a) Patient is unresponsive to all stimuli: Y b) Pupils fixed and non-reactive: Y c) Auscultation of precordium reveals absence of heart tones: Y d) Auscultation of lungs reveals absence of breath sounds: Y e) Absence of blood pressure / all vital signs: Y f) QRS complexes are not present on monitor / EKG strip: Y g) Pacer spikes without capture: N/A 4. Comments: at bedside at time of . [facility] of choice is [facility] in [place]. Donor network notified. Reference number [id number]. Patient is suitable for donation per the Donor network and Magdalena is aware. [facility] has been notified. Patients Magdalena removed his wedding ring and took home. Dr. Rodas at nurses station at time of .
== END 2020-12-09 13:35 | disposition expired | DRG 291 ==
LOC: ER 15:24 → ED HOLD 19:17 → PCU 3S 19:40 → UNDODISIN 11-14 08:30 → PCU 3S 11-14 11:20
PROVIDERS: ADMIT Family Medicine; ATTEND Family Medicine
DX: I50.33 Acute on chronic diastolic (congestive) heart failure (principal); G93.41 Metabolic encephalopathy; J18.9 Pneumonia, unspecified organism; J96.01 Acute respiratory failure with hypoxia; S32.038A Other fracture of third lumbar vertebra, initial encounter for closed fracture; S06.0X9A Concussion with loss of consciousness of unspecified duration, initial encounter; N17.9 Acute kidney failure, unspecified; K62.5 Hemorrhage of anus and rectum; N13.6 Pyonephrosis; J44.0 Chronic obstructive pulmonary disease with (acute) lower respiratory infection; I71.4 Abdominal aortic aneurysm, without rupture; E87.70 Fluid overload, unspecified; E87.6 Hypokalemia; I95.1 Orthostatic hypotension; Z20.822 Contact with and (suspected) exposure to COVID-19; W01.0XXA Fall on same level from slipping, tripping and stumbling without subsequent striking against object, initial encounter; W22.01XA Walked into wall, initial encounter; Z66 Do not resuscitate; Z51.5 Encounter for palliative care; Z88.8 Allergy status to other drugs, medicaments and biological substances; Z87.891 Personal history of nicotine dependence; Y92.009 Unspecified place in unspecified non-institutional (private) residence as the place of occurrence of the external cause
CPT/HCPCS: 36415; 36430; 36600; 70450; 70496; 70498; 71045; 71250; 71275; 72131; 76937; 80048; 80053; 80202; 81001; 82272; 82803; 82948; 83605; 83735; 83880; 84100; 84132; 84443; 84484; 85007; 85018; 85025; 85027; 85610; 85730; 86885; 86900; 86901; 86920; 87040; 87045; 87046; 87077; 87081; 87088; 87186; 87324; 87449; 87635; 89055; 92508; 92616; 93005; 93306; 93880; 94640; 94760; 96365; 97110; 97162; 97530; 97535; 99285; C9803; G0378; J0360; J0456; J0696; J1200; J1630; J1644; J1940; J2270; J2543; J2930; J3360; J3370; J3480; J3486; J7030; J7050; P9016; Q9967